=== PATIENT | male | born 1930 | race Caucasian/White ===

== ENCOUNTER 2016-12-28 18:41 | Observation (INO) | payer OTHER, BC ==
[2016-12-28 19:23] LABS: BASOPHIL 0.7 % (0-2.0); EOSINOPHIL 0.2 % (0-4.5); MCH 28.3 pg (25.7-33.7); MCHC 33.4 g/dl (32.0-35.9); MEAN CELL VOLUME 84.6 fl (80-96); MEAN PLT VOLUME 8.8 fl (7.5-11.1); NEUTROPHILS 68.8 % (42.8-82.8); PLATELET COUNT 171 K/MM3 (134-434); RDW 14.2 % (11.9-15.9); WHITE BLOOD COUNT 7.6 K/mm3 (4.0-10.0)
[2016-12-28 19:34] LABS: INR 1.08 (0.82-1.09); PROTHROMBIN TIME (PATIENT) 11.9 SEC (9.98-11.88)
[2016-12-28 19:46] LABS: ALBUMIN 3.8 g/dl (3.4-5.0); ANION GAP 10 (8-16); BILIRUBIN,TOTAL 0.6 mg/dL (0.2-1.0); CALCIUM 8.9 mg/dL (8.5-10.1); CO2 26 mmol/L (21-32); CREATININE 0.9 mg/dL (0.7-1.3); GLUCOSE,RANDOM 127 mg/dL (74-106); SGOT/AST 16 U/L (15-37); SGPT/ALT 20 U/L (12-78); TOT PROT 6.7 g/dl (6.4-8.2)
[2016-12-28 19:49] LABS: ALK PHOS 66 U/L (45-117); TROPONIN I 0.03 ng/ml (0.00-0.05)
--- NOTE | 2016-12-28 19:57 | PDOC ---
History of Present Illness - General Chief Complaint: Chest Pain Stated Complaint: CHEST PAIN Time Seen by Provider: 12/28/16 19:23 History Source: Patient, Family Exam Limitations: No Limitations - History of Present Illness Initial Comments: 12/28/16 19:42 Patient is an 89 y.o male with history reflux, shingles, diet-controlled DM, PHN , c/o decreased appetite and feeling weak. Per states the patient has not been eating well x 2-3 days, but today not drinking liquids at all. This evening had tightness in the chest, states it felt like a burning. His gave him tea, then he vomited, then felt better. PMD: Dr. Covarrubias PMHX: as above PSOCHX: neg cig, neg etoh, neg durg. Famhx: noncontributory ALL: NKDA GENERAL/CONSTITUTIONAL: [No fever or chills. No weakness. No weight change.] HEAD, EYES, EARS, NOSE AND THROAT: [No change in vision. No ear pain or discharge. No sore throat.] CARDIOVASCULAR: [No chest pain or shortness of breath.] RESPIRATORY: [No cough, wheezing, or hemoptysis.] GASTROINTESTINAL: [No nausea, vomiting, diarrhea or constipation. No rectal bleeding.] GENITOURINARY: [No dysuria, frequency, or change in urination.] MUSCULOSKELETAL: [No joint or muscle swelling or pain. No neck or back pain.] SKIN AND BREASTS: [No rash or easy bruising.] NEUROLOGIC: [No headache, vertigo, loss of consciousness, or loss of sensation.] PSYCHIATRIC: [No depression or anxiety.] ENDOCRINE: [No increased thirst. No abnormal weight change.] HEMATOLOGIC/LYMPHATIC: [No anemia, easy bleeding, or history of blood clots.] ALLERGIC/IMMUNOLOGIC: [No hives or skin allergy. No latex allergy.] GENERAL: [The patient is awake, alert, and fully oriented, in no acute distress. ] HEAD: [Normal with no signs of trauma.] EYES: [Pupils equal, round and reactive to light, extraocular movements intact, sclera anicteric, conjunctiva clear.] ENT: [Ears normal, nares patent, oropharynx clear without exudates. Moist mucous membranes.] NECK: [Normal range of motion, supple without lymphadenopathy, JVD, or masses.] LUNGS: [Breath sounds equal, clear to auscultation bilaterally. No wheezes, and no crackles.] HEART: [Regular rate and rhythm, normal S1 and S2 without murmur, rub, (+) tenderness to distal sternum.] ABDOMEN: [Soft, nontender, normoactive bowel sounds. No guarding, no rebound. No masses.] EXTREMITIES: [Normal range of motion, no edema. No clubbing or cyanosis. No cords, erythema, or tenderness.] NEUROLOGICAL: [Cranial nerves II through XII grossly intact. Normal speech, normal gait.] PSYCH: [Normal mood, normal affect.] SKIN: [Warm, Dry, normal turgor, (+) hyperpimented rashes along right upper back along dermatome] Past History - Past Medical History Allergies/Adverse Reactions: Allergies Allergy/AdvReac Type Severity Reaction Status Date / Time Penicillins Allergy Intermediate Rash Verified 12/28/16 18:46 Home Medications: Ambulatory Orders Aspirin [ASA -] 81 mg PO DAILY 09/27/16 Simvastatin [Zocor -] 20 mg PO HS 09/27/16 Diabetes: Yes (no meds) Hypercholesterolemia: Yes - Psycho/Social/Smoking Cessation Hx Suicidal Ideation: No Smoking History: Never smoked Hx Alcohol Use: No Drug/Substance Use Hx: No *Physical Exam - Vital Signs Last Vital Signs Temp Pulse Resp BP Pulse Ox 97.1 F L 93 H 18 142/75 98 12/28/16 18:43 12/28/16 18:43 12/28/16 18:43 12/28/16 18:43 12/28/16 18:43 ED Treatment Course - LABORATORY CBC & Chemistry Diagram: 12/29/16 06:45 12/29/16 06:45 - ADDITIONAL ORDERS Additional order review: Laboratory Results 12/28/16 18:11 INR 1.08 12/28/16 18:11 RBC 5.55 MCV 84.6 MCHC 33.4 RDW 14.2 MPV 8.8 Neutrophils % 68.8 D Lymphocytes % 24.3 D Monocytes % 6.0 Eosinophils % 0.2 D Basophils % 0.7 D Medical Decision Making - Medical Decision Making 12/28/16 19:57 Patient is a 86 year old male with h/o male with history reflux, shingles, diet- controlled DM, PHN, c/o decreased appetite and feeling weak. Per states the patient has not been eating well x 2-3 days, but today not drinking liquids at all. R/o VA, metabolic will get labs, ekg, cxr, ivf, Zofran 4 mg IV for nausea. labs with no acute findings except for ketone in the UA continue to hydrate cxr neg will admit to scattered obs for repeat trop and continued IVF hydration 12/28/16 23:08 EKG SR rate 85, NAD, (-) ST-T wave changes. d/w with Dr. Dawson will admit to obs *DC/Admit/Observation/Transfer Diagnosis at time of Disposition: Weakness generalized, Dehydration Chest pain Qualifiers: Chest pain type: unspecified Qualified Code(s): R07.9 - Chest pain, unspecified Nausea and vomiting Qualifiers: Vomiting type: unspecified Vomiting Intractability: unspecified Qualified Code( s): R11.2 - Nausea with vomiting, unspecified - Discharge Dispostion Condition at time of disposition: Stable Admit: Yes
[2016-12-28] MEDS ORDERED: SODIUM CHLORIDE 0.9% 1000 ML INFUS.BAG IV ONE (20:37)
[2016-12-28] MEDS ORDERED: ONDANSETRON 4 MG/2 ML VIAL ONE (21:41)
[2016-12-28] MEDS ORDERED: ONDANSETRON 4 MG/2 ML VIAL IVPUSH ONE (21:43)
[2016-12-28 22:01] LABS: AMYLASE 82 U/L (25-115)
[2016-12-28 22:38] LABS: URINE APPEARANCE CLEAR; URINE BILIRUBIN NEGATIVE (NEGATIVE); URINE BLOOD NEGATIVE (NEGATIVE); URINE COLOR YELLOW; URINE GLUCOSE (UA) NEGATIVE (NEGATIVE); URINE KETONE 1+ (NEGATIVE); URINE LEUK ESTERASE NEGATIVE (NEGATIVE); URINE NITRITE NEGATIVE (NEGATIVE); URINE PROTEIN NEGATIVE (NEGATIVE); URINE UROBILINOGEN 2.0 E.U/dl E.U./dl (0.2-1.0)
--- NOTE | 2016-12-28 23:39 | HP ---
CHIEF COMPLAINT: Chest Pain, Decreased Appetite, Generalized Weakness PCP: Dr. Covarrubias HISTORY OF PRESENT ILLNESS: This is a 86 y/o male with a past medical history of Diet Controlled DM, HLD, GERD, Post Herpetic Neuralgia. Who presents to the emergency department with his spouse with decreased appetite, generalized weakness, burning chest pain x 2 -3 days. Patient reports that his appetite has decreased since getting older, he reports drinking lots of fluids-water and juice. Patient reports increased fatigue. Patient reports feeling a burning pain across his chest and epigastrium , without SOB. Patient denies fever, chills, cough, dizziness, jaw pain, diaphoresis, N/V/D, constipation, dysuria ER course was notable for: (1) Cardiac Enzymes neg x1 (2) Chest Xray image- no infiltrate no effusion (3) EKG- NSR, Septal Infarct, age undetermined Recent Travel: None PAST MEDICAL HISTORY: See HPI PAST SURGICAL HISTORY: R- Shoulder for Dislocation R knee Replacement Social History: Smoking: Never Alcohol: None Drugs: None Lives with spouse, retired Family History: Father: Cardiac, HTN Allergies Penicillins Allergy (Intermediate, Verified 12/28/16 18:46) Rash HOME MEDICATIONS: Home Medications Medication Instructions Recorded Aspirin [ASA -] 81 mg PO DAILY 09/27/16 Simvastatin [Zocor -] 20 mg PO HS 09/27/16 REVIEW OF SYSTEMS CONSTITUTIONAL: Absent: fever, chills, diaphoresis, generalized weakness, malaise, loss of appetite, weight change HEENT: Absent: rhinorrhea, nasal congestion, throat pain, throat swelling, difficulty swallowing, mouth swelling, ear pain, eye pain, visual changes CARDIOVASCULAR: chest pain Absent: syncope, palpitations, irregular heart rate, lightheadedness, peripheral edema RESPIRATORY: Absent: cough, shortness of breath, dyspnea with exertion, orthopnea, wheezing, stridor, hemoptysis GASTROINTESTINAL: abdominal pain Absent: abdominal distension, nausea, vomiting, diarrhea, constipation, melena , hematochezia GENITOURINARY: Absent: dysuria, frequency, urgency, hesitancy, hematuria, flank pain, genital pain MUSCULOSKELETAL: Absent: myalgia, arthralgia, joint swelling, back pain, neck pain SKIN: Absent: rash, itching, pallor HEMATOLOGIC/IMMUNOLOGIC: Absent: easy bleeding, easy bruising, lymphadenopathy, frequent infections ENDOCRINE: Absent: unexplained weight gain, unexplained weight loss, heat intolerance, cold intolerance NEUROLOGIC: Absent: headache, focal weakness or paresthesias, dizziness, unsteady gait, seizure, mental status changes, bladder or bowel incontinence PSYCHIATRIC: Absent: anxiety, depression, suicidal or homicidal ideation, hallucinations. PHYSICAL EXAMINATION Vital Signs - 24 hr 12/28/16 18:43 Temperature 97.1 F L Pulse Rate 93 H Respiratory 18 Rate Blood Pressure 142/75 O2 Sat by Pulse 98 Oximetry (%) GENERAL: Awake, alert, and fully oriented, in no acute distress. HEAD: Normal with no signs of trauma. EYES: Pupils equal, round and reactive to light, extraocular movements intact, sclera anicteric, conjunctiva clear. No lid lag. EARS, NOSE, THROAT: Ears normal, nares patent, oropharynx clear without exudates. Moist mucous membranes. NECK: Normal range of motion, supple without lymphadenopathy, JVD, or masses. LUNGS: Breath sounds equal, clear to auscultation bilaterally. No wheezes, and no crackles. No accessory muscle use. HEART: Regular rate and rhythm, normal S1 and S2 without murmur, rub or gallop. Non-reproducible CP ABDOMEN: Soft, tender to epigastrium, not distended, normoactive bowel sounds, no guarding, no rebound, no masses. No hepatomegaly or splenomegaly. MUSCULOSKELETAL: Normal range of motion at all joints. No bony deformities or tenderness. No CVA tenderness. UPPER EXTREMITIES: 2+ pulses, warm, well-perfused. No cyanosis. No clubbing. Cap refill <2 seconds. No peripheral edema. LOWER EXTREMITIES: 2+ pulses, warm, well-perfused. No calf tenderness. No peripheral edema. NEUROLOGICAL: Cranial nerves II-XII intact. Normal speech. Normal gait. PSYCHIATRIC: Cooperative. Good eye contact. Appropriate mood and affect. SKIN: Warm, dry, normal turgor, no rashes or lesions noted. Laboratory Results - last 24 hr 12/28/16 12/28/16 12/28/16 18:11 18:11 18:11 WBC 7.6 D RBC 5.55 Hgb 15.7 Hct 46.9 MCV 84.6 MCHC 33.4 RDW 14.2 Plt Count 171 MPV 8.8 Neutrophils % 68.8 D Lymphocytes % 24.3 D Monocytes % 6.0 Eosinophils % 0.2 D Basophils % 0.7 D INR 1.08 Sodium 138 Potassium 3.8 Chloride 102 Carbon Dioxide 26 Anion Gap 10 BUN 12 D Creatinine 0.9 Creat Clearance w eGFR > 60 Random Glucose 127 H Calcium 8.9 Total Bilirubin 0.6 D AST 16 D ALT 20 Alkaline Phosphatase 66 Creatine Kinase 69 Troponin I 0.03 D Total Protein 6.7 Albumin 3.8 Total Amylase Lipase Urine Color Urine Appearance Urine pH Ur Specific Randolph Urine Protein Urine Glucose (UA) Urine Ketones Urine Blood Urine Nitrite Urine Bilirubin Urine Urobilinogen Ur Leukocyte Esterase 12/28/16 12/28/16 19:15 22:05 WBC RBC Hgb Hct MCV MCHC RDW Plt Count MPV Neutrophils % Lymphocytes % Monocytes % Eosinophils % Basophils % INR Sodium Potassium Chloride Carbon Dioxide Anion Gap BUN Creatinine Creat Clearance w eGFR Random Glucose Calcium Total Bilirubin AST ALT Alkaline Phosphatase Creatine Kinase Troponin I Total Protein Albumin Total Amylase 82 Lipase 157 Urine Color Yellow Urine Appearance Clear Urine pH 6.0 Ur Specific Randolph 1.021 Urine Protein Negative Urine Glucose (UA) Negative Urine Ketones 1+ H Urine Blood Negative Urine Nitrite Negative Urine Bilirubin Negative Urine Urobilinogen 2.0 e.u/dl Ur Leukocyte Esterase Negative ASSESSMENT/PLAN: This is a 86 y/o male with a PMHx of: Diet Controlled DM, HLD, GERD, PHN. Presents to the ED with Burning Chest Pain, decreased appetite, malaise. Placed in Tele Observation for Chest Pain r/o ACS, Acid Reflux, Mild Dehydration for further evaluation of their emergent condition. Plan: 1. Chest Pain r/o ACS vs Acid Reflux - Tele Monitoring - HEART Score 4 - CARLA 2 - Serial Enzymes - Echo in am - EKG reviewed - Chest Xray-reviewed - Ordered Asa 324mg x1 - Continue Asa - Lipid Panel, Hgb A1C in am - Monitor BMP, Mg, Phos 2. Dehydration - +1 Ketones - NS bolus given in ED - Continue gentle IVF - Monitor lytes - Monitor vitals 3. GERD - PPI 4.Diabetes Mellitus - BGMs - ISS - HgbA1C in am 5. HLD - Continue Zocor - Lipid Panel in am 6. PHN - non active - patient reports completing medication regimen 7. FEN - NS@42ml/hr - Replete lytes prn - 1800 ADA, Low Cholesterol Diet 8. DVT/PPI Prophylaxis - OOB - SCDs - Consider AC if LOS > 48 hrs Code Status: Full Code Problem List - Problem (1) Chest pain Code(s): R07.9 - CHEST PAIN, UNSPECIFIED Qualifiers: Chest pain type: unspecified Qualified Code(s): R07.9 - Chest pain, unspecified (2) Dehydration Code(s): E86.0 - DEHYDRATION (3) Nausea and vomiting Code(s): R11.2 - NAUSEA WITH VOMITING, UNSPECIFIED Qualifiers: Vomiting type: unspecified Vomiting Intractability: unspecified Qualified Code(s): R11.2 - Nausea with vomiting, unspecified (4) Weakness generalized Code(s): R53.1 - WEAKNESS (5) Post herpetic neuralgia Code(s): B02.29 - OTHER POSTHERPETIC NERVOUS SYSTEM INVOLVEMENT (6) Shingles Code(s): B02.9 - ZOSTER WITHOUT COMPLICATIONS Qualifiers: Herpes zoster complications: without complications Qualified Code(s): B02.9 - Zoster without complications (7) Diet-controlled diabetes mellitus Code(s): E11.9 - TYPE 2 DIABETES MELLITUS WITHOUT COMPLICATIONS (8) HLD (hyperlipidemia) Code(s): E78.5 - HYPERLIPIDEMIA, UNSPECIFIED (9) GERD (gastroesophageal reflux disease) Code(s): K21.9 - GASTRO-ESOPHAGEAL REFLUX DISEASE WITHOUT ESOPHAGITIS (10) DVT prophylaxis Code(s): DLC0967 - Visit type - Emergency Visit Emergency Visit: Yes ED Registration Date: 12/28/16 Care time: The patient presented to the Emergency Department on the above date and was hospitalized for further evaluation of their emergent condition. - New Patient This patient is new to me today: Yes Date on this admission: 12/28/16 - Critical Care Critical Care patient: No
[2016-12-28] MEDS ORDERED: ASPIRIN 81 MG CHEWABLE TABLETS PO ONE (23:56)
[2016-12-28] MEDS ORDERED: ONDANSETRON 4 MG/2 ML VIAL IVPUSH PRN (23:57)
[2016-12-29] MEDS ORDERED: FAMOTIDINE 20 MG/50 ML IVPB 50 ML IVPB ONE ×2 (00:02→00:32)
[2016-12-29] MEDS ORDERED: ASPIRIN 325 MG ENTERIC COATED TABLET (FP) ONE (00:32)
[2016-12-29 01:16] LABS: TROPONIN I 0.03 ng/ml (0.00-0.05)
[2016-12-29 07:01] LABS: EOSINOPHIL 0.6 % (0-4.5); MCH 28.6 pg (25.7-33.7); MEAN CELL VOLUME 84.1 fl (80-96); MEAN PLT VOLUME 8.8 fl (7.5-11.1); NEUTROPHILS 61.6 % (42.8-82.8); PLATELET COUNT 139 K/MM3 (134-434)
[2016-12-29 07:25] LABS: CALCIUM 8.3 mg/dL (8.5-10.1); CREATININE 0.8 mg/dL (0.7-1.3); MAGNESIUM 1.8 mg/dL (1.8-2.4); PHOSPHOROUS 2.7 mg/dL (2.5-4.9)
[2016-12-29 07:30] LABS: TROPONIN I 0.03 ng/ml (0.00-0.05)
[2016-12-29 07:44] VITALS: TEMP 98.7
[2016-12-29] MEDS ORDERED: ASPIRIN 81 MG CHEWABLE TABLETS PO SCH (10:00)
--- NOTE | 2016-12-29 10:28 | PN ---
Physical Exam: SUBJECTIVE: Patient seen and examined. Ate breakfast. No recurrent chest pain. OBJECTIVE: Trop neg x 3. Echo done, result is pending. Vital Signs Period Temp Pulse Resp BP Sys/Shanks Pulse Ox Last 24 Hr 97.9 F-98.7 F 72-78 16-19 130-145/68-78 95-97 GENERAL: The patient is awake, alert, and fully oriented, in no acute distress. EYES: PERRL, extraocular movements intact, sclera anicteric, conjunctiva clear. No ptosis. ENT: Ears normal, nares patent, oropharynx clear without exudates, moist mucous membranes. NECK: Trachea midline, full range of motion, supple. LUNGS: Breath sounds equal, clear to auscultation bilaterally, no wheezes, no crackles, no accessory muscle use. HEART: Regular rate and rhythm, S1, S2 without murmur, rub or gallop. ABDOMEN: Soft, nontender even to deep palpation including epigastrium and RUQ, nondistended, normoactive bowel sounds, no guarding, no rebound, no hepatosplenomegaly, no masses. EXTREMITIES: 2+ pulses, warm, well-perfused, no edema. NEUROLOGICAL: Cranial nerves II through XII grossly intact. Normal speech, gait not observed. PSYCH: Normal mood, normal affect. SKIN: Warm, dry, normal turgor, no rashes or lesions noted Laboratory Results - last 24 hr 12/29/16 12/29/16 12/29/16 00:40 06:45 06:45 WBC 7.0 RBC 4.86 Hgb 13.9 D Hct 40.9 MCV 84.1 MCHC 34.0 RDW 14.0 Plt Count 139 MPV 8.8 Neutrophils % 61.6 Lymphocytes % 28.1 Monocytes % 8.7 Eosinophils % 0.6 D Basophils % 1.0 Sodium 140 Potassium 4.1 Chloride 107 Carbon Dioxide 25 Anion Gap 8 BUN 12 Creatinine 0.8 Random Glucose 121 H Hemoglobin A1c % Calcium 8.3 L Phosphorus 2.7 Magnesium 1.8 Creatine Kinase 69 96 Troponin I 0.03 0.03 Triglycerides 58 Cholesterol 127 Total LDL Cholesterol 59 HDL Cholesterol 70 H 12/29/16 06:45 WBC RBC Hgb Hct MCV MCHC RDW Plt Count MPV Neutrophils % Lymphocytes % Monocytes % Eosinophils % Basophils % Sodium Potassium Chloride Carbon Dioxide Anion Gap BUN Creatinine Random Glucose Hemoglobin A1c % 6.5 H Calcium Phosphorus Magnesium Creatine Kinase Troponin I Triglycerides Cholesterol Total LDL Cholesterol HDL Cholesterol Active Medications Generic Name Dose Route Start Last Admin Trade Name Freq PRN Reason Stop Dose Admin Aspirin 81 mg 12/29/16 10:00 Asa - PO DAILY FLAKO Atorvastatin Calcium 20 mg 12/29/16 22:00 Lipitor - PO HS FLAKO Sodium Chloride 1,000 mls @ 42 mls/hr 12/29/16 00:00 12/29/16 00:41 Normal Saline - IV 42 mls/hr ASDIR FLAKO Administration Ondansetron HCl 4 mg 12/28/16 23:57 Zofran Injection IVPUSH Q6H PRN NAUSEA AND/OR VOMITING ASSESSMENT/PLAN: 86 y/o male with diet-controlled DM, HLD, GERD, and post- herpetic neuralgia placed in observation for dehydration and rule out MT. Plan: 1. Chest Pain r/o ACS vs Acid Reflux - Tele Monitoring - Trop neg x 3 - Follow up echocardiogram - Continue Asa - Lipid panel unremarkable 2. Dehydration - +1 Ketones - NS bolus given in ED - Continue gentle IVF - Monitor lytes 3. GERD - Pepcid 20mg IVPB bid 4.Diabetes Mellitus - BGMs - ISS - HgbA1C is 6.5; will advise followup with PCP, continuation of diet 5. HLD - Continue Zocor 6. PHN - No pain or other active issues 7. FEN - NS@84 ml/hr - Replete lytes prn - 1800 ADA, Low Cholesterol Diet 8. DVT/PPI Prophylaxis - OOB Code Status: Full Code Dispo: Anticipate discharge after echo resulted today. Visit type - Emergency Visit Emergency Visit: Yes ED Registration Date: 12/28/16 Care time: The patient presented to the Emergency Department on the above date and was hospitalized for further evaluation of their emergent condition. - New Patient This patient is new to me today: Yes Date on this admission: 12/29/16 - Critical Care Critical Care patient: No
[2016-12-29] MEDS ORDERED: SODIUM CHLORIDE 1,000 ML IV SCH ×2 (11:30)
[2016-12-29 14:15] VITALS: BMI 25.8
[2016-12-29 14:19] VITALS: BP 133/79; PULSE 68
--- NOTE | 2016-12-29 16:20 | EKG ---
Test Reason : Blood Pressure : / mmHG Vent. Rate : 085 BPM Atrial Rate : 085 BPM P-R Int : 186 ms QRS Dur : 080 ms QT Int : 376 ms P-R-T Axes : 059 017 088 degrees QTc Int : 447 ms NORMAL SINUS RHYTHM SEPTAL INFARCT , AGE UNDETERMINED ABNORMAL ECG WHEN COMPARED WITH ECG OF 14-OCT-2016 00:09, SEPTAL INFARCT IS NOW PRESENT Confirmed by NANO DUDLEY MD ([id number]) on 12/29/2016 4:20:05 PM Referred By: Confirmed By:NANO DUDLEY MD
--- NOTE | 2016-12-29 17:51 | DS ---
Physical Exam: SUBJECTIVE: Patient seen and examined. Feeling better, no complaints. OBJECTIVE: Vital Signs Period Temp Pulse Resp BP Sys/Shanks Pulse Ox Last 24 Hr 97.9 F-98.7 F 67-78 16-19 130-145/68-79 95-97 PHYSICAL EXAM GENERAL: The patient is awake, alert, and fully oriented, in no acute distress. HEAD: Normal with no signs of trauma. EYES: PERRL, extraocular movements intact, sclera anicteric, conjunctiva clear. ENT: Ears normal, nares patent, oropharynx clear without exudates, moist mucous membranes. NECK: Trachea midline, full range of motion, supple. LUNGS: Breath sounds equal, clear to auscultation bilaterally, no wheezes, no crackles, no accessory muscle use. HEART: Regular rate and rhythm, S1, S2 without murmur, rub or gallop. ABDOMEN: Soft, nontender, nondistended, normoactive bowel sounds, no guarding, no rebound, no hepatosplenomegaly, no masses. EXTREMITIES: 2+ pulses, warm, well-perfused, no edema. NEUROLOGICAL: Cranial nerves II through XII grossly intact. Normal speech, gait not observed. PSYCH: Normal mood, normal affect. SKIN: Warm, dry, normal turgor, no rashes or lesions noted. LABS Laboratory Results - last 24 hr 12/29/16 12/29/16 12/29/16 00:40 06:45 06:45 WBC 7.0 RBC 4.86 Hgb 13.9 D Hct 40.9 MCV 84.1 MCHC 34.0 RDW 14.0 Plt Count 139 MPV 8.8 Neutrophils % 61.6 Lymphocytes % 28.1 Monocytes % 8.7 Eosinophils % 0.6 D Basophils % 1.0 Sodium 140 Potassium 4.1 Chloride 107 Carbon Dioxide 25 Anion Gap 8 BUN 12 Creatinine 0.8 Random Glucose 121 H Hemoglobin A1c % Calcium 8.3 L Phosphorus 2.7 Magnesium 1.8 Creatine Kinase 69 96 Troponin I 0.03 0.03 Triglycerides 58 Cholesterol 127 Total LDL Cholesterol 59 HDL Cholesterol 70 H 12/29/16 06:45 WBC RBC Hgb Hct MCV MCHC RDW Plt Count MPV Neutrophils % Lymphocytes % Monocytes % Eosinophils % Basophils % Sodium Potassium Chloride Carbon Dioxide Anion Gap BUN Creatinine Random Glucose Hemoglobin A1c % 6.5 H Calcium Phosphorus Magnesium Creatine Kinase Troponin I Triglycerides Cholesterol Total LDL Cholesterol HDL Cholesterol HOSPITAL COURSE: This is a 86 year old male with a history of diet-controlled DM , HLD, GERD, and post-herpetic neuralgia who presented to the ED last night complaining of decreased appetite/no fluid intake, generalized weakness, burning chest pain x 2-3 days. He was placed in observation for rule out SC and dehydration, as UA showed 1+ ketones. Hospital course was notable for: (1) EKG: NSR, no ST or T wave changes (2) Troponin negative x 3 (3) CXR: No acute process (4) Lipid profile unremarkable (5) HgbA1C 6.5% (6) Echocardiogram: normal LVEF, normal structure/function The patient was given Pepcid, Zofran, and IV fluids and greatly improved. This morning, he is asymptomatic and ate a full breakfast without difficulty. He will be discharged with Pepcid and PCP followup. Return precautions were reviewed with the patient. Date of Admission:12/28/16 Date of Discharge: 12/29/16 Minutes to complete discharge: 35 Discharge Summary Reason For Visit: WEAKNESS,NAUSEA AND VOMITING,CHEST PIAN,DEHYDRATIO Condition: Stable - Instructions Diet, Activity, Other Instructions: You were seen for weakness, dehydration, poor appetite, and chest pain. Your diagnostics including abdominal labs, cardiac labs, chest xray, EKG, and echocardiogram did not reveal any cause for your symptoms. Rest and stay well-hydrated. Take Pepcid as prescribed for relief of burning stomach/chest pain, as this seemed to help you while in the hospital. Follow up with your primary care doctor within one week. Return here for worsening chest pain, abdominal pain, vomiting, or any other concerning symptoms. Referrals: Nicholas Greenberg I [Primary Care Provider] - 1 Week Disposition: HOME - Home Medications Comprehensive Discharge Medication List: Ambulatory Orders Aspirin [ASA -] 81 mg PO DAILY 09/27/16 Simvastatin [Zocor -] 20 mg PO HS 09/27/16 Famotidine [Pepcid -] 20 mg PO DAILY #30 tablet 12/29/16 This patient is new to me today: No Emergency Visit: Yes ED Registration Date: 12/28/16 Care time: The patient presented to the Emergency Department on the above date and was hospitalized for further evaluation of their emergent condition. Critical Care patient: No - Discharge Referral Referred to [facility] No
[2016-12-29] MEDS ORDERED: FAMOTIDINE 20 MG/50 ML IVPB 50 ML IVPB SCH (22:00)
[2016-12-29] MEDS ORDERED: ATORVASTATIN CA 20 MG TABLET (FP) PO SCH (22:00)
== END 2016-12-29 14:10 | disposition home or self-care (01) ==
LOC: JER 18:41 → OBSVTOIN 23:11 → UNDOADMOB 23:11 → JERBED 23:11 → INTOOBSV 23:11 → UNDOADMOB 23:27 → JERBED 23:27
PROVIDERS: ADMIT Internal Medicine; ATTEND Nurse Practitioner Family
DX: E86.0 Dehydration (principal); R11.2 Nausea with vomiting, unspecified; E11.9 Type 2 diabetes mellitus without complications; K21.9 Gastro-esophageal reflux disease without esophagitis; E78.5 Hyperlipidemia, unspecified; B02.29 Other postherpetic nervous system involvement; R07.9 Chest pain, unspecified
CPT/HCPCS: 36415; 71010-TC; 80048; 80053; 80061; 81003; 82150; 82550; 83036; 83690; 83721; 83735; 84100; 84484; 85025; 85610; 93005; 93010; 93306-TC; 99285-25; G0378

== ENCOUNTER 2018-04-07 18:19 | Emergency (ER) | payer OTHER, BC ==
[2018-04-07 18:58] VITALS: BP 143/74; PULSE 96; TEMP 97.7; BMI 23.6
[2018-04-07] MEDS ORDERED: ONDANSETRON 4 MG/2 ML VIAL IVPUSH ONE (20:24)
[2018-04-07] MEDS ORDERED: FAMOTIDINE 20 MG/50 ML IVPB 20 MG/50 ML MG IVPB ONE ×2 (20:24→20:50)
[2018-04-07] MEDS ORDERED: SODIUM CHLORIDE 1,000 ML IV STA (20:24)
--- NOTE | 2018-04-07 20:24 | PDOC ---
History of Present Illness - General History Source: Patient, Spouse Exam Limitations: No Limitations - History of Present Illness Initial Comments: 04/07/18 21:04 The patient is a 87 year old male with past medical history of reflux, shingles , diet-controlled DM, hypercholesterolemia and PHN presents to the emergency department with nausea and vomiting since last night. As per the , last night they went out to eat, where he had white rice, chicken stew, sweet plantains and a piece of cake. She states immediately as they got home, the patient started having episodes of dark colored vomit, no relief with seltzer water or chamomile tea. The patient is reported to have episode of hiccup followed by the vomiting. As per the , who reports similar incident in the past which were resolved by tea. She reports calling Dr. Greenberg earlier today, who recommend they come in for an evaluation for dehydration. The patients last bowel movement was earlier prior to the ED visit. Denies hematemesis. Denies fever, chills, headache. Denies chest pain, sob or cough. Denies diarrhea or constipation. Denies dysuria, hematuria, frequency or urgency to urinate. Allergies: Penicillins Social history: None reported Surgical history: Right Knee Surgery PCP: Dr. Nicholas Greenberg <Christy Montana - Last Filed: 04/07/18 21:04> <Lynn Trevizo - Last Filed: 04/08/18 16:48> - General Chief Complaint: Nausea/Vomiting Stated Complaint: NAUSEA/VOMITING Time Seen by Provider: 04/07/18 20:11 Past History <Christy Montana - Last Filed: 04/07/18 21:04> - Past Medical History COPD: No Diabetes: Yes (no meds) Hypercholesterolemia: Yes - Suicide/Smoking/Psychosocial Hx Smoking History: Never smoked Hx Alcohol Use: No Drug/Substance Use Hx: No Substance Use Type: None <Lynn Trevizo - Last Filed: 04/08/18 16:48> - Past Medical History Allergies/Adverse Reactions: Allergies Allergy/AdvReac Type Severity Reaction Status Date / Time Penicillins Allergy Intermediate Rash Verified 04/07/18 18:53 Home Medications: Ambulatory Orders Aspirin [ASA -] 81 mg PO DAILY 09/27/16 Simvastatin [Zocor -] 20 mg PO HS 11/19/16 Famotidine [Pepcid -] 20 mg PO DAILY #30 tablet 12/29/16 Review of Systems - Review of Systems Able to Perform ROS?: Yes Comments:: 04/07/18 21:04 GENERAL/CONSTITUTIONAL: No fever or chills. No weakness. HEAD, EYES, EARS, NOSE AND THROAT: No change in vision. No ear pain or discharge. No sore throat. CARDIOVASCULAR: No chest pain or shortness of breath. RESPIRATORY: No cough, wheezing, or hemoptysis. GASTROINTESTINAL: (+) nausea and vomiting No diarrhea or constipation. GENITOURINARY: No dysuria, frequency, or change in urination. MUSCULOSKELETAL: No joint or muscle swelling or pain. No neck or back pain. SKIN: No rash NEUROLOGIC: No headache, vertigo, loss of consciousness, or change in strength/ sensation. ENDOCRINE: No increased thirst. No abnormal weight change. HEMATOLOGIC/LYMPHATIC: No anemia, easy bleeding, or history of blood clots. ALLERGIC/IMMUNOLOGIC: No hives or skin allergy. <Christy Montana - Last Filed: 04/07/18 21:04> *Physical Exam - Vital Signs Last Vital Signs Temp Pulse Resp BP Pulse Ox 97.7 F 96 H 20 143/74 96 04/07/18 18:54 04/07/18 18:54 04/07/18 18:54 04/07/18 18:54 04/07/18 18:54 - Physical Exam Comments: 04/07/18 21:05 GENERAL: Awake, alert, and fully oriented, in no acute distress HEAD: No signs of trauma EYES: PERRLA, EOMI, sclera anicteric, conjunctiva clear ENT: (+) dry mucous membranes. Auricles normal inspection, hearing grossly normal, nares patent, oropharynx clear without exudates. NECK: Normal ROM, supple, no lymphadenopathy, JVD, or masses LUNGS: Breath sounds equal, clear to auscultation bilaterally. No wheezes, and no crackles HEART: Regular rate and rhythm, normal S1 and S2, no murmurs, rubs or gallops ABDOMEN: Soft, nontender, normoactive bowel sounds. No guarding, no rebound. No masses EXTREMITIES: Normal range of motion, no edema. No clubbing or cyanosis. No cords, erythema, or tenderness NEUROLOGICAL: Cranial nerves II through XII grossly intact. Normal speech, normal gait SKIN: Warm, Dry, normal turgor, no rashes or lesions noted. <Christy Montana - Last Filed: 04/07/18 21:04> - Vital Signs Last Vital Signs Temp Pulse Resp BP Pulse Ox 97.7 F 96 H 20 143/74 96 04/07/18 18:54 04/07/18 18:54 04/07/18 18:54 04/07/18 18:54 04/07/18 18:54 <Lynn Trevizo - Last Filed: 04/08/18 16:48> Heart Score/ECG Review - ECG Impressions Comment:: EKG 22:48- NSR [address]/T changes <Lynn Trevizo - Last Filed: 04/08/18 16:48> ED Treatment Course - LABORATORY CBC & Chemistry Diagram: 04/07/18 20:41 04/07/18 20:41 - ADDITIONAL ORDERS Additional order review: 04/07/18 20:41 RBC 5.90 H D MCV 85.2 MCHC 32.9 RDW 14.1 MPV 8.4 Neutrophils % 89.0 H D Lymphocytes % 6.0 L D Monocytes % 4.0 Eosinophils % 0.0 D Basophils % 1.0 <Christy Montana - Last Filed: 04/07/18 21:04> - LABORATORY CBC & Chemistry Diagram: 04/07/18 20:41 04/07/18 20:41 <Lynn Trevizo - Last Filed: 04/08/18 16:48> Medical Decision Making - Medical Decision Making 04/08/18 01:02 Pt reports improvement in symptoms. He was able to tolerate crackers PO. No signs of acute abdomen. I counseled him to return if the symptoms persist beyond 48 hours, or if he has pain, fever, or any other concerning symptoms. <Lynn Trevizo - Last Filed: 04/08/18 16:48> *DC/Admit/Observation/Transfer - Attestations Scribe Attestion: 04/07/18 21:05 Documentation prepared by Christy Montana, acting as medical art therapist for Lynn Trevizo MD. <Christy Montana - Last Filed: 04/07/18 21:04> - Discharge Dispostion Decision to Admit order: No <Jeniffer Trevizozabeth - Last Filed: 04/08/18 16:48> Diagnosis at time of Disposition: Nausea and vomiting Qualifiers: Vomiting type: unspecified Vomiting Intractability: non-intractable Qualified Code(s): R11.2 - Nausea with vomiting, unspecified - Discharge Dispostion Disposition: HOME Condition at time of disposition: Improved - Referrals Referrals: Nicholas Greenberg I [Primary Care Provider] - - Patient Instructions Printed Discharge Instructions: DI for Vomiting -- Adult - Post Discharge Activity
[2018-04-07] MEDS ORDERED: ONDANSETRON 4 MG/2 ML VIAL ONE (20:50)
[2018-04-07 20:58] LABS: HEMATOCRIT 50.3 % (35.4-49); HEMOGLOBIN 16.5 GM/dL (11.7-16.9); MCHC 32.9 g/dl (32.0-35.9); MEAN CELL VOLUME 85.2 fl (80-96); MEAN PLT VOLUME 8.4 fl (7.5-11.1); PLATELET COUNT 217 K/MM3 (134-434); RDW 14.1 % (11.9-15.9)
[2018-04-07 21:20] LABS: ALBUMIN 3.8 g/dl (3.4-5.0); ALK PHOS 67 U/L (45-117); ANION GAP 7 (8-16); BILIRUBIN,TOTAL 0.6 mg/dL (0.2-1.0); BLOOD UREA NITROGEN 13 mg/dL (7-18); CALCIUM 9.1 mg/dL (8.5-10.1); CHLORIDE 101 mmol/L (98-107); CO2 33 mmol/L (21-32); GLUCOSE,RANDOM 158 mg/dL (74-106); POTASSIUM 3.9 mmol/L (3.5-5.1); SGOT/AST 20 U/L (15-37); SGPT/ALT 17 U/L (12-78); SODIUM 141 mmol/L (136-145); TOT PROT 7.2 g/dl (6.4-8.2)
--- NOTE | 2018-04-08 13:27 | EKG ---
Test Reason : Blood Pressure : / mmHG Vent. 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
== END 2018-04-07 23:18 | disposition home or self-care (01) ==
LOC: JER 18:19
PROC: 3E033GC Introduction of Other Therapeutic Substance into Peripheral Vein, Percutaneous Approach (ICD-10-PCS; principal; 2018-04-07)
PROC: 3E0337Z Introduction of Electrolytic and Water Balance Substance into Peripheral Vein, Percutaneous Approach (ICD-10-PCS; 2018-04-07)
DX: R11.2 Nausea with vomiting, unspecified (principal)
CPT/HCPCS: 36415; 80053; 83690; 85025; 93005; 93010; 99282-25; J7030

== ENCOUNTER 2018-04-10 12:25 | Observation (INO) | payer OTHER, BC ==
--- NOTE | 2018-04-10 13:16 | PDOC ---
History of Present Illness - General History Source: Patient Exam Limitations: No Limitations - History of Present Illness Initial Comments: 04/10/18 13:22 The patient is a 87 year old male with a significant PMH of reflux, shingles, diet-controlled DM, hypercholesterolemia and PHN presents to the emergency department with nausea and vomiting for the past few days. The patient was seen at this ER three days ago, discharged home since his symptoms improved but was told to return to the ER if symptoms persisted. As per the , the patient is still unable to tolerate PO intake. The patient is complaining today of persistent episodes of brownish colored vomit with associated hiccups and denies any alleviating factors. Allergies: Penicillins Social history: None reported Surgical history: Right Knee Surgery PCP: Dr. Nicholas Greenberg <Adrianne Colorado - Last Filed: 04/10/18 13:24> <Irma Melendrez - Last Filed: 04/10/18 23:33> <Lynn Trevizo - Last Filed: 04/11/18 09:44> - General Chief Complaint: Nausea/Vomiting Stated Complaint: REVISIT/ NAUSEA Time Seen by Provider: 04/10/18 13:14 Past History <Adrianne Colorado - Last Filed: 04/10/18 13:24> <Irma Melendrez - Last Filed: 04/10/18 23:33> - Past Medical History COPD: No Diabetes: Yes (no meds) Hypercholesterolemia: Yes - Suicide/Smoking/Psychosocial Hx Smoking History: Never smoked Have you smoked in the past 12 months: No Information on smoking cessation initiated: No Hx Alcohol Use: No Drug/Substance Use Hx: No Substance Use Type: None <Lynn Trevizo - Last Filed: 04/11/18 09:44> - Past Medical History Allergies/Adverse Reactions: Allergies Allergy/AdvReac Type Severity Reaction Status Date / Time Penicillins Allergy Intermediate Rash Verified 04/10/18 12:34 Home Medications: Ambulatory Orders Aspirin [ASA -] 81 mg PO DAILY 09/27/16 Simvastatin [Zocor -] 20 mg PO HS 09/27/16 Famotidine [Pepcid -] 20 mg PO DAILY #30 tablet 12/29/16 Review of Systems - Review of Systems Able to Perform ROS?: Yes Comments:: 04/10/18 13:23 GENERAL/CONSTITUTIONAL: No fever or chills. No weakness. HEAD, EYES, EARS, NOSE AND THROAT: No change in vision. No ear pain or discharge. No sore throat. CARDIOVASCULAR: No chest pain or shortness of breath. RESPIRATORY: No cough, wheezing, or hemoptysis. GASTROINTESTINAL: (+) Nausea and vomiting. No diarrhea or constipation. GENITOURINARY: No dysuria, frequency, or change in urination. MUSCULOSKELETAL: No joint or muscle swelling or pain. No neck or back pain. SKIN: No rash NEUROLOGIC: No headache, vertigo, loss of consciousness, or change in strength/ sensation. ENDOCRINE: No increased thirst. No abnormal weight change. HEMATOLOGIC/LYMPHATIC: No anemia, easy bleeding, or history of blood clots. ALLERGIC/IMMUNOLOGIC: No hives or skin allergy. <Adrianne Colorado - Last Filed: 04/10/18 13:24> *Physical Exam - Vital Signs Last Vital Signs Temp Pulse Resp BP Pulse Ox 98.3 F 94 H 16 112/63 04/10/18 12:30 04/10/18 12:30 04/10/18 12:30 04/10/18 12:30 04/10/18 12:30 <Adrianne Colorado - Last Filed: 04/10/18 13:24> - Vital Signs Last Vital Signs Temp Pulse Resp BP Pulse Ox 98.3 F 94 H 16 112/63 100 04/10/18 12:30 04/10/18 12:30 04/10/18 12:30 04/10/18 12:30 04/10/18 12:30 <Irma Melendrez - Last Filed: 04/10/18 23:33> - Vital Signs Last Vital Signs Temp Pulse Resp BP Pulse Ox 98.3 F 94 H 16 112/63 100 04/10/18 12:30 04/10/18 12:30 04/10/18 12:30 04/10/18 12:30 04/10/18 12:30 - Physical Exam Comments: GENERAL: Awake, alert, and fully oriented, in no acute distress. Intermittent belching/hiccups. HEAD: No signs of trauma EYES: PERRLA, EOMI, sclera anicteric, conjunctiva clear ENT: Auricles normal inspection, hearing grossly normal, nares patent, oropharynx clear without exudates. Dry mucosa NECK: Normal ROM, supple, no lymphadenopathy, JVD, or masses LUNGS: Breath sounds equal, clear to auscultation bilaterally. No wheezes, and no crackles HEART: Regular rate and rhythm, normal S1 and S2, no murmurs, rubs or gallops ABDOMEN: Soft, +epigastric tenderness, hyperactive bowel sounds. +Guarding, no rebound. No masses EXTREMITIES: Normal range of motion, no edema. No clubbing or cyanosis. No cords, erythema, or tenderness NEUROLOGICAL: Cranial nerves II through XII grossly intact. Normal speech, normal gait SKIN: Warm, Dry, normal turgor, no rashes or lesions noted. <Lynn Trevizo - Last Filed: 04/11/18 09:44> ED Treatment Course - LABORATORY CBC & Chemistry Diagram: 04/10/18 13:25 04/10/18 13:25 - ADDITIONAL ORDERS Additional order review: Laboratory Results 04/10/18 04/10/18 04/10/18 14:05 13:25 13:25 PT with INR 12.10 INR 1.07 PTT (Actin FS) 25.3 L Sodium 138 Potassium 3.5 Chloride 97 L Carbon Dioxide 31 Anion Gap 10 BUN 11 Creatinine 0.9 Creat Clearance w eGFR > 60 Random Glucose 147 H Calcium 9.0 Total Bilirubin 0.8 D AST 17 ALT 15 Alkaline Phosphatase 64 Total Protein 7.1 Albumin 3.6 Lipase 99 Urine Color Yellow Urine Appearance Clear Urine pH 7.0 Ur Specific Jennings 1.025 Urine Protein 1+ H Urine Glucose (UA) 1+ H Urine Ketones 2+ H Urine Blood Negative Urine Nitrite Negative Urine Bilirubin Negative Urine Urobilinogen 4.0 e.u/dl Ur Leukocyte Esterase Negative Urine WBC (Auto) 2 Urine RBC (Auto) 3 Ur Epithelial Cells Rare Urine Bacteria Rare Urine Mucus Few Blood Type Antibody Screen 04/10/18 13:25 PT with INR INR PTT (Actin FS) Sodium Potassium Chloride Carbon Dioxide Anion Gap BUN Creatinine Creat Clearance w eGFR Random Glucose Calcium Total Bilirubin AST ALT Alkaline Phosphatase Total Protein Albumin Lipase Urine Color Urine Appearance Urine pH Ur Specific Jennings Urine Protein Urine Glucose (UA) Urine Ketones Urine Blood Urine Nitrite Urine Bilirubin Urine Urobilinogen Ur Leukocyte Esterase Urine WBC (Auto) Urine RBC (Auto) Ur Epithelial Cells Urine Bacteria Urine Mucus Blood Type O POSITIVE Antibody Screen Negative 04/10/18 13:25 RBC 5.68 H MCV 83.8 MCHC 33.6 RDW 13.9 MPV 8.3 Neutrophils % 85.8 H Lymphocytes % 8.6 D Monocytes % 5.1 Eosinophils % 0.0 Basophils % 0.5 - Medications Given in the ED: ED Medications Discontinued Medications Generic Name Dose Route Start Last Admin Trade Name Don PRN Reason Stop Dose Admin Acetaminophen 1,000 mg 04/10/18 13:17 04/10/18 13:25 Ofirmev Injection - IVPB 04/10/18 13:18 1,000 mg ONCE ONE Administration Famotidine/Sodium Chloride 20 mg in 50 mls @ 100 mls/hr 04/10/18 13:17 15:40 Pepcid 20 Mg Premixed Ivpb - IVPB 04/10/18 13:46 100 mls/hr ONCE ONE Administration Sodium Chloride 1,000 mls @ 1,000 mls/hr 04/10/18 13:17 04/10/18 13:25 Normal Saline - IV 04/10/18 14:16 1,000 mls/hr ASDIR STA Administration Sodium Chloride 1,000 mls @ 1,000 mls/hr 04/10/18 15:04 04/10/18 15:40 Normal Saline - IV 04/10/18 16:03 1,000 mls/hr ASDIR STA Administration Famotidine/Sodium Chloride 20 mg in 50 mls @ 100 mls/hr 04/10/18 20:15 19:46 Pepcid 20 Mg Premixed Ivpb - IVPB 04/10/18 20:44 100 mls/hr ONCE ONE Administration Metoclopramide HCl 10 mg 04/10/18 17:40 04/10/18 17:55 Reglan Injection - IVPB 04/10/18 17:41 10 mg ONCE ONE Administration Ondansetron HCl 4 mg 04/10/18 13:17 04/10/18 13:25 Zofran Injection IVPUSH 04/10/18 13:18 4 mg ONCE ONE Administration Ondansetron HCl 4 mg 04/10/18 15:09 04/10/18 15:40 Zofran Injection IVPUSH 04/10/18 15:10 4 mg ONCE ONE Administration Irma Olguin - Last Filed: 04/10/18 23:33> - LABORATORY CBC & Chemistry Diagram: 04/11/18 07:00 04/11/18 07:00 <Lynn Trevizo - Last Filed: 04/11/18 09:44> Medical Decision Making - Medical Decision Making 04/10/18 23:33 I received pt on signoout. Patient Name: ANA HICKEY THIS IS A PRELIMINARY REPORT FROM [facility] DATE OF SERVICE: 2018-04-10 16:32:37 IMAGES: [id number] EXAM: CT ABDOMEN AND PELVIS WITH IV CONTRAST HISTORY: Nausea and vomiting TECHNIQUE: Contiguous axial images were obtained utilizing a multislice, multidetector CT scanner. Post-processed reformations were also submitted for review. COMPARISON: None available FINDINGS: Lower Chest: Consolidative opacities in the lower lobes , right greater than left, with small bilateral pleural effusions. Abdomen: Liver:: Mild hepatic steatosis. Bile Ducts: Within normal limits. Gallbladder:: Within normal limits. Pancreas:: Within normal limits. Spleen:: Within normal limits. Adrenals: Within normal limits. Kidneys: No evidence of hydronephrosis or nephrolithiasis. Stomach:: Small sliding hiatal hernia with diffuse thickening of the esophagus compatible with gastroesophageal reflux and esophagitis. In addition, there is inflammatory/ infectious gastroduodenitis with moderate distention of the stomach with air fluid level. Bowel:: No evidence of small bowel obstruction or mass. Normal appendix is identified. Colonic diverticulosis without evidence of acute diverticulitis. Slightly prominent rectosigmoid colon, which may related to under distention. However, the possibility of inflammatory/ infectious proctitis cannot be excluded. Pelvis: Reproductive Organs: Enlarged prostate gland. Bladde: Within normal limits. Vessels: Aorta: Atherosclerotic calcification of the aorta without aneurysm or dissection. Retroperitoneum: Within normal limits. Bones: : No suspicious osseous lesions. Lumbar spondylosis. IMPRESSION: 1. Small sliding hiatal hernia with diffuse thickening of the esophagus compatible with gastroesophageal reflux and esophagitis. In addition, there is inflammatory/ infectious gastroduodenitis with moderate distention of the stomach with air fluid level concerning for gastroparesis. 2. No evidence of small bowel obstruction or mass. Normal appendix is identified. Colonic diverticulosis without evidence of acute diverticulitis. Slightly prominent rectosigmoid colon, which may related to under distention. However, the possibility of inflammatory/ infectious proctitis cannot be excluded. 3. Consolidative opacities in the lower lobes , right greater than left, with small bilateral pleural effusions. THIS DOCUMENT HAS BEEN ELECTRONICALLY SIGNED Pt will be admitted for IV abx for his gastroduodenitis and proctitis. He is unable to take PO meds, as he has reflux, vomiting and hiccuping and belchin. Unclear if he has an outlet obstruction, he has no pain with palpation at this time. No indication for NGTube at this time. Pt will require GI eval. Pt admitted to the hospitalists, as his PMD is Dr. Greenberg at [facility]. <Irma Melendrez - Last Filed: 04/10/18 23:33> - Medical Decision Making 04/10/18 15:08 Pt has returned from ultrasound. No acute findings to explain his symptoms. He continues to have intermittent belching/hiccups. Will give an additional dose of zofran and sent for CT. 04/10/18 19:01 Pt signed out to Dr. Melendrez. He has returned from CT, required a dose of reglan, as he continued to have nausea and belching. He is awaiting read of CT, will require admission. <Lynn Trevizo - Last Filed: 04/11/18 09:44> *DC/Admit/Observation/Transfer - Attestations Scribe Attestion: 04/10/18 13:24 Documentation prepared by Adrianne Colorado, acting as medical assisting program director for Lynn Trevizo MD. <Adrianne Colorado - Last Filed: 04/10/18 13:24> - Discharge Dispostion Decision to Admit order: Yes <Irma Melendrez - Last Filed: 04/10/18 23:33> <Lynn Trevizo - Last Filed: 04/11/18 09:44> Diagnosis at time of Disposition: Gastroduodenitis, Proctitis - Discharge Dispostion Condition at time of disposition: Guarded
[2018-04-10] MEDS ORDERED: SODIUM CHLORIDE 1,000 ML IV STA ×2 (13:17→15:04)
[2018-04-10] MEDS ORDERED: ACETAMINOPHEN 1000 MG/100 ML VIAL (NON FORMULARY) IVPB ONE (13:17)
[2018-04-10] MEDS ORDERED: ONDANSETRON 4 MG/2 ML VIAL IVPUSH ONE ×2 (13:17→15:09)
[2018-04-10] MEDS ORDERED: FAMOTIDINE 20 MG/50 ML IVPB 20 MG/50 ML MG IVPB ONE ×4 (13:17→21:29)
[2018-04-10] MEDS ORDERED: ACETAMINOPHEN INJECTION 100 ML IVPB ONE (13:27)
[2018-04-10] MEDS ORDERED: ONDANSETRON 4 MG/2 ML VIAL ONE ×2 (13:27→15:37)
[2018-04-10 13:31] LABS: BASO % 0.5 % (0-2.0); HEMATOCRIT 47.5 % (35.4-49); LYMPH % 8.6 % (8-40); MCH 28.1 pg (25.7-33.7); MCHC 33.6 g/dl (32.0-35.9); MEAN CELL VOLUME 83.8 fl (80-96); MEAN PLT VOLUME 8.3 fl (7.5-11.1); MONO % 5.1 % (3.8-10.2); NEUT % 85.8 % (42.8-82.8); PLATELET COUNT 227 K/MM3 (134-434); RBC 5.68 M/mm3 (4.00-5.60); RDW 13.9 % (11.9-15.9); WHITE BLOOD COUNT 9.9 K/mm3 (4.0-10.0)
[2018-04-10 14:01] LABS: INR 1.07 (0.82-1.09); PROTHROMBIN TIME (PATIENT) 12.1 SEC (9.7-13.0)
[2018-04-10 14:04] LABS: ACTIVATED PTT 25.3 SECONDS (26.9-34.4)
[2018-04-10 14:11] LABS: ALBUMIN 3.6 g/dl (3.4-5.0); ANION GAP 10 (8-16); BILIRUBIN,TOTAL 0.8 mg/dL (0.2-1.0); BLOOD UREA NITROGEN 11 mg/dL (7-18); CHLORIDE 97 mmol/L (98-107); CO2 31 mmol/L (21-32); CREATININE 0.9 mg/dL (0.7-1.3); GLUCOSE,RANDOM 147 mg/dL (74-106); LIPASE 99 U/L (73-393); POTASSIUM 3.5 mmol/L (3.5-5.1); SGOT/AST 17 U/L (15-37); SGPT/ALT 15 U/L (12-78); SODIUM 138 mmol/L (136-145)
[2018-04-10 14:12] LABS: ALK PHOS 64 U/L (45-117); TOT PROT 7.1 g/dl (6.4-8.2)
[2018-04-10 14:30] LABS: URINE APPEARANCE CLEAR; URINE BILIRUBIN NEGATIVE (<2.0 mg/dL); URINE BLOOD NEGATIVE (NEGATIVE); URINE COLOR YELLOW; URINE GLUCOSE (UA) 1+ (NEGATIVE); URINE KETONE 2+ (NEGATIVE); URINE LEUK ESTERASE NEGATIVE (NEGATIVE); URINE NITRITE NEGATIVE (NEGATIVE); URINE UROBILINOGEN 4.0 E.U/dl mg/dL (0.2-1.0)
[2018-04-10 14:31] LABS: URINE PROTEIN 1+ (NEGATIVE)
[2018-04-10 14:35] LABS: EPI CELLS RARE /HPF (FEW); URINE BACTERIA RARE /hpf (NONE SEEN); URINE MUCUS FEW
[2018-04-10] MEDS ORDERED: METOCLOPRAMIDE HCL INJECTION 10 MG/2 ML VIAL IVPB ONE (17:40)
[2018-04-10] MEDS ORDERED: METOCLOPRAMIDE HCL INJECTION 10 MG/2 ML VIAL ONE (17:51)
--- NOTE | 2018-04-10 21:49 | HP ---
CHIEF COMPLAINT: PO intolerance, vomiting, nausea PCP: Dr. Greenberg ([facility]) HISTORY OF PRESENT ILLNESS: 87yo pleasant M with history of GERD, Post-herpetic neuralgia, hyperlipidemia and Type 2 DM (diet controlled) who returns to the ER with intolerance to food and drink and copious amounts of vomiting. Pt initially had this start on Thursday04/06/18 after going to a restaurant and eating some white rice, chicken, and some soup when he started to develop some nausea. Pt's reports giving him some tea and then pt started vomiting nonbloody/nonbilious vomiting at that time. Pt was seen here in the ER and was discharged due to tolerating crackers with instructions to return if he continued to have vomiting past 48 more hours. Yesterday pt was feeling slightly better until today when he started to develop nausea and vomiting once again. Pt and his note several episodes of vomiting first clear fluid and then dark/greenish emesis. No blood was noted. Again he could not tolerate any food or drink and returned to the ER for further evaluation. He endorses loss of his usual appetite in the past year and a 10lb weight loss within this past year. Pt is unsure of exact time of his last colonoscopy, but reports it being within the last 5-10 years (closer to 10) . Pt denies fever/chills, lightheadedness, dizziness, shortness of breath, chest pain/discomfort, palpitations, diarrhea, constipation, current abdominal pain, current nausea (after medications), dysuria, polyuria, flushing, and intolerance to heat or cold. ER course was notable for: (1) 2LNS total (2) Zofran 4mg x2; Reglan 10mg x1 (3) CTAP - distended stomach with gastroduodenitis and proctitis. Air down to the rectum noted. Recent Travel: [place] (within past 2 months) PAST MEDICAL HISTORY: Diet Controlled DM, HLD, GERD, Post Herpetic Neuralgia PAST SURGICAL HISTORY: R knee replacement (many years ago) Rotator cuff repair L (many years ago) Social History: Smoking: Never Alcohol: Occasional with dinner Drugs: None Family History: No family hx of cancer No family hx of thyroid disease Allergies Penicillins Allergy (Intermediate, Verified 04/10/18 12:34) Pruritic Rash HOME MEDICATIONS: Home Medications Medication Instructions Recorded Aspirin [ASA -] 81 mg PO DAILY 09/27/16 Simvastatin [Zocor -] 20 mg PO HS 09/27/16 Famotidine [Pepcid -] 20 mg PO DAILY #30 tablet 12/29/16 REVIEW OF SYSTEMS CONSTITUTIONAL: Present: loss of appetite, weight change Absent: fever, chills, diaphoresis, generalized weakness, malaise, HEENT: Absent: rhinorrhea, nasal congestion, throat pain, throat swelling, difficulty swallowing, mouth swelling, ear pain, eye pain, visual changes CARDIOVASCULAR: Absent: chest pain, syncope, palpitations, irregular heart rate, lightheadedness , peripheral edema RESPIRATORY: Absent: cough, shortness of breath, dyspnea with exertion, orthopnea, wheezing, stridor, hemoptysis GASTROINTESTINAL: Present: nausea, vomiting, Absent: abdominal pain, abdominal distension, diarrhea, constipation, melena, hematochezia GENITOURINARY: Absent: dysuria, frequency, urgency, hesitancy, hematuria, flank pain MUSCULOSKELETAL: Absent: back pain, neck pain ENDOCRINE: Absent: unexplained weight gain, heat intolerance, cold intolerance NEUROLOGIC: Absent: headache, focal weakness or paresthesias, dizziness, unsteady gait, seizure, mental status changes, bladder or bowel incontinence PHYSICAL EXAMINATION Vital Signs - 24 hr 04/10/18 12:30 Temperature 98.3 F Pulse Rate 94 H Respiratory 16 Rate Blood Pressure 112/63 O2 Sat by Pulse 100 Oximetry (%) GENERAL: NAD, awake, alert, and fully oriented HEENT: EOMI, DANAY, sclera anicteric, no nystagmus noted, dry mucosa NECK: No lymphadenopathy, No thyromegal or nodules, soft LUNGS: CTA bilaterally. No wheezes, and no crackles. No accessory muscle use. HEART: RRR, normal S1 and S2 without murmur ABDOMEN: Soft, nondistended, hypoactive BS, nontender with palpation, negative morataya's, no guarding, no hepatomegaly, no masses. MUSCULOSKELETAL: No bony deformities or tenderness. No CVA tenderness. EXTREMITIES: 2+ DP pulses, warm, well-perfused. No peripheral edema. 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 Strength 5/5 flexion and extension of upper and lower extremities. Sensation to dull touch intact in all areas. Normal speech. Normal gait. PSYCHIATRIC: Cooperative. Good eye contact. Appropriate mood and affect. SKIN: Warm, dry and peeling skin on LLExt (due to sunburn), no rashes or lesions noted Laboratory Results - last 24 hr 04/10/18 04/10/18 04/10/18 13:25 13:25 13:25 WBC 9.9 RBC 5.68 H Hgb 16.0 Hct 47.5 MCV 83.8 MCH 28.1 MCHC 33.6 RDW 13.9 Plt Count 227 MPV 8.3 Neutrophils % 85.8 H Lymphocytes % 8.6 D Monocytes % 5.1 Eosinophils % 0.0 Basophils % 0.5 Nucleated RBC % 0 PT with INR 12.10 INR 1.07 PTT (Actin FS) 25.3 L Sodium Potassium Chloride Carbon Dioxide Anion Gap BUN Creatinine Creat Clearance w eGFR Random Glucose Calcium Total Bilirubin AST ALT Alkaline Phosphatase Total Protein Albumin Lipase Urine Color Urine Appearance Urine pH Ur Specific [place] Urine Protein Urine Glucose (UA) Urine Ketones Urine Blood Urine Nitrite Urine Bilirubin Urine Urobilinogen Ur Leukocyte Esterase Urine WBC (Auto) Urine RBC (Auto) Ur Epithelial Cells Urine Bacteria Urine Mucus Blood Type O POSITIVE Antibody Screen Negative 04/10/18 04/10/18 13:25 14:05 WBC RBC Hgb Hct MCV MCH MCHC RDW Plt Count MPV Neutrophils % Lymphocytes % Monocytes % Eosinophils % Basophils % Nucleated RBC % PT with INR INR PTT (Actin FS) Sodium 138 Potassium 3.5 Chloride 97 L Carbon Dioxide 31 Anion Gap 10 BUN 11 Creatinine 0.9 Creat Clearance w eGFR > 60 Random Glucose 147 H Calcium 9.0 Total Bilirubin 0.8 D AST 17 ALT 15 Alkaline Phosphatase 64 Total Protein 7.1 Albumin 3.6 Lipase 99 Urine Color Yellow Urine Appearance Clear Urine pH 7.0 Ur Specific [place] 1.025 Urine Protein 1+ H Urine Glucose (UA) 1+ H Urine Ketones 2+ H Urine Blood Negative Urine Nitrite Negative Urine Bilirubin Negative Urine Urobilinogen 4.0 e.u/dl Ur Leukocyte Esterase Negative Urine WBC (Auto) 2 Urine RBC (Auto) 3 Ur Epithelial Cells Rare Urine Bacteria Rare Urine Mucus Few Blood Type Antibody Screen ASSESSMENT/PLAN: 87yo M with hx GERD, PHN, HLD, and diet controlled DM who presents with recurrent PO intolerance with N and nonbloody/bilious Vomiting 1) Gastroduodenitis --Viral vs. 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 Air to rectum noted and no obstructive patterning --RUQ US w/o evidence of acute cholecystitis --NPO now for bowel rest --Reglan 10mg q6h PRN (last dose 5pm 04/10) --IVF for rehydration purposes --EKG now (previous Qtc normal @ 449, but will confirm) --IV Levaquin and Flagyl 500mg x1 in Ed --Can observe off antibiotics due to being most likely viral --Will need to collect records from Dr. Greenberg of [facility] (PCP) in regards to last colonoscopy/EGD and findings 2) HLD --Continue Simvastatin home dose tomorrow 3) DM --Reportedly diet controlled --Will check A1c in AM labs FEN: Fluids: LR@100cc/hr for hydration Electrolyte abnormalities: None Nutrition: NPO for bowel rest PPX: DVT - Heparin SQ GI - Protonix 40mg IVP qdaily Dispo: obs M/S; PO challenge tomorrow Case discussed with Dr. Cottrell and Dr. Marcelle Peacock, DO - IM PGY-1 Visit type - Emergency Visit Emergency Visit: Yes ED Registration Date: 04/10/18 Care time: The patient presented to the Emergency Department on the above date and was hospitalized for further evaluation of their emergent condition. - New Patient This patient is new to me today: Yes Date on this admission: 04/11/18 - Critical Care Critical Care patient: No Hospitalist Screening - Colonoscopy Questionnaire Colonoscopy Questionnaire: Colonoscopy Questionnaire - Patient: 50 - 75 years old and never had a screening colonoscopy: Unknown History of colon or rectal polyps, or CA: Unknown History of IBD, Crohn's disease or UC: Unknown History of abdominal radiation therapy as a child: Unknown - Relative: 1 with colon or rectal CA, or polyps at age 60 or younger: Unknown Colon or rectal CA diagnosed at age 45 or younger: Unknown Multiple relatives with colon or rectal CA: Unknown - Outcome: Screening Result: Negative Screen
[2018-04-10] MEDS ORDERED: SODIUM CHLORIDE 1,000 ML IV SCH (22:15)
[2018-04-10] MEDS ORDERED: LACTATED RINGERS SOLUTION 1,000 ML/1,000 ML INFUS.BAG IV SCH (22:30)
[2018-04-11] MEDS ORDERED: METOCLOPRAMIDE HCL INJECTION 10 MG/2 ML VIAL IVPUSH PRN (00:01)
[2018-04-11 02:05] VITALS: BMI 23.3
--- NOTE | 2018-04-11 05:48 | PN ---
Teaching Attending Note Name of Resident: Colten Peacock ATTENDING PHYSICIAN STATEMENT I saw and evaluated the patient. Chart, data, imaging reviewed. I reviewed the resident's note and discussed the case with the resident. I agree with the resident's findings and plan as documented. SUBJECTIVE: 87yo man with GERD, Post-herpetic neuralgia, hyperlipidemia, DM c/o nausea and vomiting after eating, started on 04/06, seen in ER but discharged after he was seen tolerating crackers. Pt returns with similar vomiting episode. No mention of sick contacts or recent travels. OBJECTIVE: Last Vital Signs Temp Pulse Resp BP Pulse Ox 98.4 F 83 20 136/62 96 04/11/18 01:55 04/11/18 01:55 04/11/18 01:55 04/11/18 01:55 04/11/18 01:55 general nad, aaox3 heent -PERRLA, no scleral icterus neck -supple cv-s1+s2+rrr chest- cta b/l abdomen- soft, nt, bs+ skin - no rashes appreciated Abnormal Lab Results 04/10/18 04/10/18 04/10/18 13:25 13:25 13:25 RBC 5.68 H Neutrophils % 85.8 H PTT (Actin FS) 25.3 L Chloride 97 L Random Glucose 147 H Urine Protein Urine Glucose (UA) Urine Ketones 04/10/18 14:05 RBC Neutrophils % PTT (Actin FS) Chloride Random Glucose Urine Protein 1+ H Urine Glucose (UA) 1+ H Urine Ketones 2+ H CT scan of abdomen/pelvis- no free air under diaphragm, no bowel obstruction seen ASSESSMENT AND PLAN: #87yo man with acute gastroenteritis with nausea, vomiting, not toleratingPO. -observation -no antibiotics for now -IV fluid hydration -zofran 4mg IV q6hrs if nausea/vomiting -NPO for now dvt ppx -heparin sc -see resident note for retails
[2018-04-11] MEDS: HEPARIN NA (PORCINE) 5,000 UNITS/ML 1ML VIAL SQ SCH ×3 (06:51→22:06)
[2018-04-11 07:44] LABS: HEMATOCRIT 38.6 % (35.4-49); HEMOGLOBIN 13.4 GM/dL (11.7-16.9); MCH 28.9 pg (25.7-33.7); MCHC 34.6 g/dl (32.0-35.9); MEAN CELL VOLUME 83.5 fl (80-96); PLATELET COUNT 167 K/MM3 (134-434); RBC 4.63 M/mm3 (4.00-5.60); RDW 13.9 % (11.9-15.9); WHITE BLOOD COUNT 7.6 K/mm3 (4.0-10.0)
[2018-04-11 08:17] LABS: ANION GAP 7 (8-16); BLOOD UREA NITROGEN 11 mg/dL (7-18); CALCIUM 8.1 mg/dL (8.5-10.1); CHLORIDE 107 mmol/L (98-107); CO2 25 mmol/L (21-32); GLUCOSE,RANDOM 100 mg/dL (74-106); POTASSIUM 3.7 mmol/L (3.5-5.1); SODIUM 139 mmol/L (136-145)
[2018-04-11 08:18] LABS: CREATININE 0.8 mg/dL (0.7-1.3)
[2018-04-11] MEDS: PANTOPRAZOLE SODIUM 40 MG VIAL IVPUSH SCH (09:10)
--- NOTE | 2018-04-11 11:59 | PN ---
Progress Note (short form) - Note Progress Note: Subjective: no fever or chills . has no abd pain, no N/V. no cough , no SOB . has hiccups Objective: Vital Signs: Last Vital Signs Temp Pulse Resp BP Pulse Ox 98.9 F 69 20 120/57 96 04/11/18 10:00 04/11/18 10:00 04/11/18 10:00 04/11/18 10:00 04/11/18 01:55 Laboratory Results - last 24 hr 04/10/18 04/10/18 04/10/18 13:25 13:25 13:25 WBC 9.9 RBC 5.68 H Hgb 16.0 Hct 47.5 MCV 83.8 MCH 28.1 MCHC 33.6 RDW 13.9 Plt Count 227 MPV 8.3 Neutrophils % 85.8 H Lymphocytes % 8.6 D Monocytes % 5.1 Eosinophils % 0.0 Basophils % 0.5 Nucleated RBC % 0 PT with INR 12.10 INR 1.07 PTT (Actin FS) 25.3 L Sodium Potassium Chloride Carbon Dioxide Anion Gap BUN Creatinine Creat Clearance w eGFR POC Glucometer Random Glucose Hemoglobin A1c % Calcium Total Bilirubin AST ALT Alkaline Phosphatase Total Protein Albumin Lipase Urine Color Urine Appearance Urine pH Ur Specific [place] Urine Protein Urine Glucose (UA) Urine Ketones Urine Blood Urine Nitrite Urine Bilirubin Urine Urobilinogen Ur Leukocyte Esterase Urine WBC (Auto) Urine RBC (Auto) Ur Epithelial Cells Urine Bacteria Urine Mucus Blood Type O POSITIVE Antibody Screen Negative 04/10/18 04/10/18 04/11/18 13:25 14:05 00:04 WBC RBC Hgb Hct MCV MCH MCHC RDW Plt Count MPV Neutrophils % Lymphocytes % Monocytes % Eosinophils % Basophils % Nucleated RBC % PT with INR INR PTT (Actin FS) Sodium 138 Potassium 3.5 Chloride 97 L Carbon Dioxide 31 Anion Gap 10 BUN 11 Creatinine 0.9 Creat Clearance w eGFR > 60 POC Glucometer 142.69727 Random Glucose 147 H Hemoglobin A1c % Calcium 9.0 Total Bilirubin 0.8 D AST 17 ALT 15 Alkaline Phosphatase 64 Total Protein 7.1 Albumin 3.6 Lipase 99 Urine Color Yellow Urine Appearance Clear Urine pH 7.0 Ur Specific [place] 1.025 Urine Protein 1+ H Urine Glucose (UA) 1+ H Urine Ketones 2+ H Urine Blood Negative Urine Nitrite Negative Urine Bilirubin Negative Urine Urobilinogen 4.0 e.u/dl Ur Leukocyte Esterase Negative Urine WBC (Auto) 2 Urine RBC (Auto) 3 Ur Epithelial Cells Rare Urine Bacteria Rare Urine Mucus Few Blood Type Antibody Screen 04/11/18 04/11/18 04/11/18 07:00 07:00 07:00 WBC 7.6 RBC 4.63 Hgb 13.4 D Hct 38.6 D MCV 83.5 MCH 28.9 MCHC 34.6 RDW 13.9 Plt Count 167 D MPV 8.0 Neutrophils % Lymphocytes % Monocytes % Eosinophils % Basophils % Nucleated RBC % PT with INR INR PTT (Actin FS) Sodium 139 Potassium 3.7 Chloride 107 D Carbon Dioxide 25 Anion Gap 7 L BUN 11 Creatinine 0.8 Creat Clearance w eGFR POC Glucometer Random Glucose 100 D Hemoglobin A1c % 6.5 H Calcium 8.1 L Total Bilirubin AST ALT Alkaline Phosphatase Total Protein Albumin Lipase Urine Color Urine Appearance Urine pH Ur Specific [place] Urine Protein Urine Glucose (UA) Urine Ketones Urine Blood Urine Nitrite Urine Bilirubin Urine Urobilinogen Ur Leukocyte Esterase Urine WBC (Auto) Urine RBC (Auto) Ur Epithelial Cells Urine Bacteria Urine Mucus Blood Type Antibody Screen Physical Exam: NAD, MMM, no LAP CV: RRR, 2/6 DM at LUSB Lungs: CATB Abd: soft, NT, ND , hypoactive BS. EXt : no edema or erythema Imaging: CT scan of abd/pelvis reviewed. Assessment/Plan: Pleasant 87 y/o man with h/o GERD, pre-DM , and hyperlipidemia who presented with N/V .He was found to have gastric outlet obstruction 1- Gastric outlet obstruction : with thickening of duodenal, gastric and lower esophageal wall. unclear etiology. ? inflammation , infiltrative process like lymphoma , or ulcer - NPO . Ok for sips of water. - GI for EGD - PPI - Helicobacter stool Ag - IVF 2- CT with infiltrates in bases. he has no clinical signs of PNA . no need for Abx. 3- new diagnosis of DM : has been pre-diabetic and was managed with diet and exercise - prefer to d/w PCP HLOC Visit type - Emergency Visit Emergency Visit: Yes ED Registration Date: 04/10/18 Care time: The patient presented to the Emergency Department on the above date and was hospitalized for further evaluation of their emergent condition. - New Patient This patient is new to me today: Yes Date on this admission: 04/11/18 - Critical Care Critical Care patient: No
[2018-04-11] MEDS: SODIUM CHLORIDE 1,000 ML IV SCH (14:51)
--- NOTE | 2018-04-11 15:27 | PN ---
Progress Note (short form) - Note Progress Note: GI CONSULT FOR DR TIJERINA PLEASE SEE COMPLETE DICTATION CURRENTLY ASYMPTOMATIC EXAM BENIGN SIMMONS/G++ STOOL ON BABY ASA CT SCAN FINDINGS NOTED/ LIKELY REFLECT ARTIFACT OF STUDY----> BUT AGREE A DX WILL BETTER ASSESS AND BE DEFINITIVE NPO AT [place] FOR EGD / PT CONSENTS AGREE WTIH CURRENT RX NO EVIDENCE OF ANY ACUTE ABDOMINAL OR BILIARY PROCESS NURA LAYNE MD
--- NOTE | 2018-04-11 17:06 | CONS ---
DATE OF CONSULTATION: 04/11/2018 I was asked by Dr. Irma Melendrez to evaluate this patient for nausea, vomiting, and hiccups. The patient is an 87-year-old gentleman, from [place], with past medical history of chronic gastroesophageal reflux disease, shingles, diet-controlled diabetes, hypercholesterolemia, hypertension, who presented to the emergency room yesterday with nausea and vomiting for a couple of days intermittently. The patient apparently was seen 3 days ago and sent home from the ER. He had blood work. He was told he was dehydrated. He received IV fluid and he was sent home. The patient then came back with episodes of brown-colored vomiting with hiccups. He denies having any blood in vomitus. He denies change in bowel habits. He denies diarrhea, constipation. He says he has had endoscopy in the past many years ago and was told that he had gastric ulcers, this was in [facility], and he has had colonoscopy in the past without finding, according to his recollection. His PCP is Dr. Nicholas Covarrubias, at [facility]. The patient is allergic to PENICILLIN. He does not smoke. He drinks socially. He is and he is retired. He worked at [facility] for over 40 years. He has had right knee surgery and he has had rotator cuff surgery. Other than that, he really has no other medical history. As an outpatient, he was taking aspirin, Zocor, Pepcid. The aspirin is a baby aspirin. He has not been on anticoagulation in the past. Apparently, when he came to the hospital with these complaints, they did an ultrasound of the right upper quadrant and he had a small right pleural effusion. There was no evidence of any gallstones or cholecystitis. There were no significant findings on the exam, such that a CAT scan of the abdomen and pelvis was performed and that scan noted marked thickening of the distal esophagus suspicious for esophagitis and gastric thickening of the gastric wall, as well as proximal duodenal thickening, raising question of gastric outlet obstruction, and it was recommended that he undergo colonoscopy. In terms of medications, the patient has been getting heparin subcutaneous, IV fluid, and Protonix. On exam, he appears to be in absolutely no acute distress. He appears younger than his stated age. He is up and about, he is afebrile. His vital signs are completely stable. Blood pressure 120/50, pulse of 70. On physical examination, his abdomen is not distended, it is thin, symmetric, without scars. It is soft. There is no tenderness. Bowel sounds are heard. There are no masses, rebound, or guarding. Rectal exam reveals stool that is brothers but guaiac positive. His lab data is notable in that his CBC is normal, white count is 7, hemoglobin 13.4, hematocrit 38, and MCV of 83, platelets 167,000. His chemistries are essentially unremarkable. It is my impression that the patient is an 87-year-old gentleman with diet-controlled diabetes, hypertension, who comes in with known reflux, has been having some intermittent nausea and vomiting. He was here a couple days ago and the blood work was unremarkable, and he was discharged. He came back with recurrence of symptoms. He has been losing weight slowly. He has some early satiety. He is not vomiting now but his CAT scan shows thickening of the distal esophagus and possible outlet obstruction of the pyloric duodenal bulb region. Clearly an upper endoscopy is indicated at this time. The patient, after discussing the procedure and the risks with him, he granted informed consent. Will keep him n.p.o. at midnight and will see if we can get an upper endoscopy performed tomorrow. Based on the endoscopic studies, further recommendations will follow. Currently, I would think it would be okay to give him trial of a clear liquid or liquid diet and see how he tolerates. His LFTs are normal, as was his sonographic CAT scan of the right upper quadrant. This did not appear to be an acute biliary attack. We will continue to be available to aide in the management of this patient. Thank you kindly. KOBE LYMAN M.D. [id number]
--- NOTE | 2018-04-11 22:08 | EKG ---
Test Reason : Blood Pressure : / mmHG Vent. Rate : 080 BPM Atrial Rate : 080 BPM P-R Int : 174 ms QRS Dur : 076 ms QT Int : 364 ms P-R-T Axes : 042 003 078 degrees QTc Int : 419 ms POOR DATA QUALITY, INTERPRETATION MAY BE ADVERSELY AFFECTED NORMAL SINUS RHYTHM SEPTAL INFARCT (CITED ON OR BEFORE 28-DEC-2016) ABNORMAL ECG WHEN COMPARED WITH ECG OF 07-APR-2018 22:48, NO SIGNIFICANT CHANGE WAS FOUND Confirmed by LEXI CARUSO MD ([id number]) on 04/11/2018 10:08:40 PM Referred By: Confirmed By:LEXI CARUSO MD
[2018-04-12] MEDS: HEPARIN NA (PORCINE) 5,000 UNITS/ML 1ML VIAL SQ SCH (06:21)
[2018-04-12] MEDS: PANTOPRAZOLE SODIUM 40 MG VIAL IVPUSH SCH ×2 (09:28→21:00)
--- NOTE | 2018-04-12 12:02 | PROC ---
Endoscopy Procedure Endoscopy procedure completed. Please see scanned procedure report. severe duodenitits in the bulb. Unable to advance to the 2nd portion deu to edema. Duodenal bulb biopsies taken gastritis in the antrum, biopsied severe aguila-esophagitits, biopsied Liquid carafare 1 gm po qid Protonix 40 mg IV BID Soft diet Repeat EGD in 7 days to assess 2nd portion of the duodenum
[2018-04-12 13:34] LABS: MAGNESIUM 2.1 mg/dL (1.8-2.4); POTASSIUM 3.9 mmol/L (3.5-5.1)
[2018-04-12 13:35] LABS: PHOSPHOROUS 2.9 mg/dL (2.5-4.9)
[2018-04-12] MEDS: SODIUM CHLORIDE 1,000 ML IV SCH (13:36)
[2018-04-12] MEDS: SUCRALFATE 1 GM/10 ML UNIT DOSE CUPS PO SCH ×2 (16:37→20:59)
--- NOTE | 2018-04-12 17:13 | PN ---
Teaching Attending Note Name of Resident: Colten Peacock ATTENDING PHYSICIAN STATEMENT I saw and evaluated the patient. I reviewed the resident's note and discussed the case with the resident. I agree with the resident's findings and plan as documented. SUBJECTIVE: No fever or chills. has no Abd pain. no N/v . OBJECTIVE: NAD, MMM CV: RRR, 2/6 DM at LUSB Lungs: CATB Abd: soft, NT, ND , hypoactive BS. EXt : no edema or erythema Imaging: CT scan of abd/pelvis reviewed. Assessment/Plan: Pleasant 87 y/o man with h/o GERD, pre-DM , mild dementia , and hyperlipidemia who presented with N/V .He was found to have gastric outlet obstruction 1- Gastric outlet obstruction : EGd with severe inflammation of duodenum and stomach and esophagitis Bx taken - soft diet - carafate and IV PPI - will need repeat EGD in 1 week - gentle hydration for now 2- New diagnosis of DM : A1c 6.5 - prefers to d/w PCP. if he tolerates diet , can likely dc tomorrow
--- NOTE | 2018-04-12 21:25 | PN ---
Physical Exam: SUBJECTIVE: No events overnight. No complaints today. NPO remains for EGD today OBJECTIVE: Vital Signs Period Temp Pulse Resp BP Sys/Shanks Pulse Ox Last 24 Hr 97.7 F-98.9 F 62-75 16-22 131-157/60-79 97-100 GENERAL: NAD, awake, alert, and fully oriented HEENT: EOMI, DANAY, sclera anicteric, no nystagmus noted, moist mucosa LUNGS: CTA bilaterally. No wheezes, and no crackles. No accessory muscle use. HEART: RRR, normal S1 and S2 without murmur ABDOMEN: Soft, nondistended, hypoactive BS, nontender, no guarding, no hepatomegaly, no masses. EXTREMITIES: 2+ DP pulses, warm, well-perfused. No peripheral edema. No calf tenderness SKIN: Warm, dry and peeling skin on LLExt (due to sunburn), no rashes or lesions noted Laboratory Results - last 24 hr 04/12/18 12:30 Potassium 3.9 Phosphorus 2.9 Magnesium 2.1 Active Medications Generic Name Dose Route Start Last Admin Trade Name Freq PRN Reason Stop Dose Admin Heparin Sodium (Porcine) 5,000 unit 04/11/18 06:00 04/12/18 06:21 Heparin - SQ 5,000 unit TID FLAKO Administration Sodium Chloride 1,000 mls @ 75 mls/hr 04/11/18 14:00 04/12/18 13:36 Normal Saline - IV 75 mls/hr ASDIR FLAKO Administration Pantoprazole Sodium 40 mg 04/12/18 22:00 04/12/18 21:00 Protonix Iv IVPUSH 40 mg BID FLAKO Administration Sucralfate 1 gm 04/12/18 16:30 04/12/18 20:59 Carafate Oral Suspension - PO 1 gm ACHS FLAKO Administration ASSESSMENT/PLAN: 87yo M with hx GERD, PHN, HLD, and diet controlled DM who presents with recurrent PO intolerance with N and nonbloody/bilious Vomiting 1) Gastric outlet obstruction 2/2Gastroduodenitis --Viral most likely, but can't r/o MALToma or other inflammatory processes --EGD today --keep npo --IVF for rehydration purposes 2) DM --Reportedly diet controlled --Will check A1c 6.5 --Medicine team previously spoke to him and and they would like to address this as an outpatient FEN: Fluids: NS@75cc/hr for hydration Electrolyte abnormalities: order K, Mg, Phos due to npo Nutrition: NPO for bowel rest PPX: DVT - Heparin SQ GI - Protonix 40mg IVP qdaily Dispo: d/c pending; PO challenge later in day Case discussed with Dr. Al Peacock, DO - IM PGY-1 Visit type - Emergency Visit Emergency Visit: No - New Patient This patient is new to me today: No - Critical Care Critical Care patient: No
[2018-04-13] MEDS: SUCRALFATE 1 GM/10 ML UNIT DOSE CUPS PO SCH ×2 (06:03→11:22)
[2018-04-13] MEDS: HEPARIN NA (PORCINE) 5,000 UNITS/ML 1ML VIAL SQ SCH ×2 (06:03→14:06)
[2018-04-13 08:36] VITALS: TEMP 97.8
[2018-04-13] MEDS: PANTOPRAZOLE SODIUM 40 MG VIAL IVPUSH SCH (09:30)
--- NOTE | 2018-04-13 14:12 | PN ---
Teaching Attending Note Name of Resident: Colten Peacock ATTENDING PHYSICIAN STATEMENT I saw and evaluated the patient. I reviewed the resident's note and discussed the case with the resident. I agree with the resident's findings and plan as documented. SUBJECTIVE: No fever or chills, no ABd pain, no n/V . tolerated solid food OBJECTIVE: NAD, MMM CV: RRR, 2/6 DM at LUSB Lungs: CATB Abd: soft, NT, ND , NL BS EXt : no edema or erythema Assessment/Plan: Pleasant 87 y/o man with h/o GERD, pre-DM , mild dementia , and hyperlipidemia who presented with N/V .He was found to have gastric outlet obstruction 1- Gastric outlet obstruction : EGd with severe inflammation of duodenum and stomach and esophagitis Bx taken - tolerated diet - carafate and po PPI BID - will need repeat EGD in 1 week . this was scheduled 2- New diagnosis of DM : A1c 6.5 - prefers to d/w PCP. nv home
--- NOTE | 2018-04-13 14:24 | DS ---
Physical Exam: SUBJECTIVE: Patient seen and examined OBJECTIVE: Vital Signs Period Temp Pulse Resp BP Sys/Shanks Pulse Ox Last 24 Hr 97.8 F-99 F 57-72 20-20 132-147/68-74 95-97 PHYSICAL EXAM GENERAL: The patient is awake, alert, and fully oriented, in no acute distress. HEAD: Normal with no signs of trauma. EYES: PERRL, extraocular movements intact, sclera anicteric, conjunctiva clear. ENT: Ears normal, nares patent, oropharynx clear without exudates, moist mucous membranes. NECK: Trachea midline, full range of motion, supple. LUNGS: Breath sounds equal, clear to auscultation bilaterally, no wheezes, no crackles, no accessory muscle use. HEART: Regular rate and rhythm, S1, S2 without murmur, rub or gallop. ABDOMEN: Soft, nontender, nondistended, normoactive bowel sounds, no guarding, no rebound, no hepatosplenomegaly, no masses. EXTREMITIES: 2+ pulses, warm, well-perfused, no edema. NEUROLOGICAL: Cranial nerves II through XII grossly intact. Normal speech, gait not observed. PSYCH: Normal mood, normal affect. SKIN: Warm, dry, normal turgor, no rashes or lesions noted. LABS HOSPITAL COURSE: Date of Admission:04/10/18 Date of Discharge: 04/13/18 Discharge Summary Reason For Visit: GASTRODUODENITIS, PROCTITIS Current Active Problems Gastric outlet obstruction (Acute) Gastroduodenitis (Acute) Nausea and vomiting (Acute) Condition: Improved - Instructions Diet, Activity, Other Instructions: You were hospitalized due to your nausea and vomiting. We performed a CAT scan which showed some inflammation of your stomach and intestine. The scope that Dr. Vega had to do found that the end of your stomach is very narrow which may have lead to your vomiting. 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 Vega says it is okay to resume as this can cause irritation to your stomach lining as well FOLLOW-UP: It is EXTREMELY important to follow-up with Dr. Vega. You will have to have ANOTHER scope to assess your stomach in 1 week --It has been scheduled for 04/23/18 and you will receive a phone call about times and instructions via your home phone Please follow-up with your general medical doctor as well to discuss what has happened during your hospital stay You do have diabetes Now . please follow with your PCP to determine medications VS diet/exercise Referrals: Nicholas Greenberg I [Primary Care Provider] - Sharad Vega MD [Staff Physician] - 1 Week Disposition: HOME - Home Medications Comprehensive Discharge Medication List: Ambulatory Orders Simvastatin [Zocor -] 40 mg PO HS 09/27/16 Pantoprazole Sodium [Protonix] 40 mg PO BID #60 tablet. 04/13/18 Sucralfate Oral Suspension [Carafate Oral Suspension -] 1 gm PO ACHS 10 Days # 400 ml 04/13/18
[2018-04-13 15:07] VITALS: BP 131/66; PULSE 67
--- NOTE | 2018-04-13 17:35 | PATH ---
Surgical Pathology Report Patient Name: ANA HICKEY [facility]. Rec. #: [id number] /Age/Gender: 1930 (Age: 87) / M Account: [id number] Location: [address] [place] [address] Taken: 04/12/2018 Received: 04/12/2018 Reported: 04/13/2018 Physicians: Sharad Vega M.D. Specimen(s) Received A: BX DUODENUM B: BX ANTRUM C: BX DISTAL ESOPHAGUS Clinical History Nausea/vomiting, hiccups Postoperative diagnosis: Gastritis, duodenitis, esophagitis Final Diagnosis A. 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 B. ANTRUM, BIOPSY: GASTRIC MUCOSA WITH MODERATE CHRONIC GASTRITIS. IMMUNOSTAIN IS NEGATIVE FOR H. PYLORI ORGANISMS. C. DISTAL ESOPHAGUS, BIOPSY: GASTROESOPHAGEAL JUNCTIONAL MUCOSA WITH ACUTE AND CHRONIC INFLAMMATION. SEPARATE ACUTE INFLAMMATORY EXUDATE. NEGATIVE FOR INTESTINAL METAPLASIA. PAS STAIN FAILED TO REVEAL FUNGAL HYPHAE. Electronically Signed Julieta Lynne M.D. Gross Description A. Received in formalin, labeled "biopsy duodenum" are 2 brothers, irregular portions of soft tissue measuring 0.1 and 0.2 cm. in greatest dimension. The specimens are submitted in toto in one cassette. B. Received in formalin, labeled "biopsy antrum" are 2 brothers, irregular portions of soft tissue averaging 0.3 cm. in greatest dimension. The specimens are submitted in toto in one cassette. C. Received in formalin, labeled "biopsy distal esophagus" are 4 brothers, irregular portions of soft tissue ranging from 0.1-0.3 cm. in greatest dimension. The specimens are submitted in toto in one cassette. /04/12/2018 saudi04/12/2018
== END 2018-04-13 15:23 | disposition home or self-care (01) ==
LOC: JER 12:25 → JERBED 21:50 → INTOOBSV 21:50 → J6S 04-11 01:18
PROVIDERS: ADMIT Internal Medicine; ATTEND Internal Medicine
PROC: 0DB98ZX Excision of Duodenum, Via Natural or Artificial Opening Endoscopic, Diagnostic (ICD-10-PCS; principal; 2018-04-10)
PROC: 0DB68ZX Excision of Stomach, Via Natural or Artificial Opening Endoscopic, Diagnostic (ICD-10-PCS; 2018-04-10)
PROC: 0DB58ZX Excision of Esophagus, Via Natural or Artificial Opening Endoscopic, Diagnostic (ICD-10-PCS; 2018-04-10)
PROC: 3E033GC Introduction of Other Therapeutic Substance into Peripheral Vein, Percutaneous Approach (ICD-10-PCS; 2018-04-10)
PROC: 3E03329 Introduction of Other Anti-infective into Peripheral Vein, Percutaneous Approach (ICD-10-PCS; 2018-04-10)
PROC: 3E0337Z Introduction of Electrolytic and Water Balance Substance into Peripheral Vein, Percutaneous Approach (ICD-10-PCS; 2018-04-10)
PROC: 3E013GC Introduction of Other Therapeutic Substance into Subcutaneous Tissue, Percutaneous Approach (ICD-10-PCS; 2018-04-10)
DX: K29.91 Gastroduodenitis, unspecified, with bleeding (principal); K44.9 Diaphragmatic hernia without obstruction or gangrene; K31.1 Adult hypertrophic pyloric stenosis; K20.9 Esophagitis, unspecified; K29.50 Unspecified chronic gastritis without bleeding; E78.5 Hyperlipidemia, unspecified; E11.9 Type 2 diabetes mellitus without complications; K29.60 Other gastritis without bleeding; R23.3 Spontaneous ecchymoses; Z88.0 Allergy status to penicillin
CPT/HCPCS: 36415; 74177-TC; 76705-TC; 80048; 80053; 81003; 81015; 82962; 83036; 83690; 83735; 84100; 84132; 85025; 85027; 85610; 85730; 86850; 86900; 86901; 87086; 88305-TC; 93005; 93010; 96365; 96367; 96368; 96372; 96375; 96376; 99284-25; G0378; J0131; J1644; J7030

== ENCOUNTER 2018-05-03 07:25 | Observation (INO) | payer OTHER, BC ==
[2018-05-03 07:57] VITALS: BMI 22.7
--- NOTE | 2018-05-03 08:01 | PDOC ---
History of Present Illness - General Chief Complaint: Syncope/Near Syncope Stated Complaint: SYNCOPE - History of Present Illness Initial Comments: 05/03/18 08:18 87 year old male with a hx of NIDDM, GERD, HLD, and gastroduodenitis presents s/ p syncopal episode in his home. Patient's states that he was getting out of bed this morning, felt lightheaded, lost consciousness and fell on his side and back, hitting his head on the carpet. Patient denies any pain. Patient's reports that the patient was preparing for colonoscopy last night for today with Dr. Vega, drinking the prep with gatorade and stopped after midnight , with no further PO intake. Denies history of syncopal episodes. Denies chest pain, SOB, nausea, vomiting, diarrhea, fevers, chills. Reports last cardiac workup was many years ago with a negative stress test. Allergies: penicillin Surgeries: knee replacement Smoke: none Alcohol: social, none last night Drugs: none PCP: Dr. Greenberg Past History - Past Medical History Allergies/Adverse Reactions: Allergies Allergy/AdvReac Type Severity Reaction Status Date / Time Penicillins Allergy Intermediate Rash Verified 05/03/18 07:57 Home Medications: Ambulatory Orders Simvastatin [Zocor -] 40 mg PO HS 09/27/16 Pantoprazole Sodium [Protonix] 40 mg PO BID #60 tablet. 04/13/18 Sucralfate [Carafate -] 1 gm PO ACHS #40 tablet 04/13/18 COPD: No Diabetes: Yes (no meds) Hypercholesterolemia: Yes - Suicide/Smoking/Psychosocial Hx Smoking History: Never smoked Have you smoked in the past 12 months: No Hx Alcohol Use: No Drug/Substance Use Hx: No Substance Use Type: None Review of Systems - Review of Systems Able to Perform ROS?: Yes Is the patient limited Mongolian proficient: Yes Constitutional: No: Chills, Fever HEENTM: No: Difficulty Swallowing Respiratory: No: Cough, Shortness of Breath Cardiac (ROS): Yes: Syncope. No: Chest Pain, Irregular Heart Rate, Chest Tightness ABD/GI: No: Diarrhea, Nausea Musculoskeletal: No: Muscle Weakness Integumentary: No: Rash Neurological: No: Headache *Physical Exam - Vital Signs Last Vital Signs Temp Pulse Resp BP Pulse Ox 98.3 F 72 16 123/71 0 L 05/03/18 07:25 05/03/18 07:25 05/03/18 07:25 05/03/18 07:25 05/03/18 07:25 - Physical Exam Comments: 05/03/18 08:27 GENERAL: A&Ox3, no acute distress EYES: PERRLA, EOMI ENT: Moist mucus membranes NECK: No JVD LUNGS: CTA, no wheezes HEART: RRR, no murmurs ABDOMEN: Soft, nontender, BS present MUSCULOSKELETAL: No CVA Tenderness EXTREMITIES: 2+ pulses, no edema. NEUROLOGICAL: Cranial nerves II-XII intact. ED Treatment Course - LABORATORY CBC & Chemistry Diagram: 05/03/18 08:45 05/03/18 08:45 Medical Decision Making - Medical Decision Making 05/03/18 08:27 87 year old male hx NIDDM, GERD, HLD, presents s/p syncopal episode -cbc, cmp, ekg, UA, CT head no contrast -IV fluids 1000cc bolus -d/w Dr. Younger *DC/Admit/Observation/Transfer Diagnosis at time of Disposition: Syncope - Discharge Dispostion Condition at time of disposition: Stable Decision to Admit order: Yes - Referrals Referrals: Nicholas Greenberg I [Primary Care Provider] - - Patient Instructions - Post Discharge Activity
[2018-05-03] MEDS ORDERED: SODIUM CHLORIDE 1,000 ML IV STA (08:29)
--- NOTE | 2018-05-03 08:29 | PDOC ---
Attending Attestation - Resident Resident Name: Colten Gomes - ED Attending Attestation I have performed the following: I have examined & evaluated the patient, The case was reviewed & discussed with the resident, I agree w/resident's findings & plan, Exceptions are as noted - HPI HPI: 05/03/18 08:24 87y M hx of gerd, hl, newly dx dm, presents s/p syncopal episode, felt lightheaded this morning when going to his appointment for a colonscopy/ endoscpy. +LOC, no head injury (was supported by on the way down) unable to remember anything about the fall. Per he was complaining of feeling lightheaded since getting up this morning. notes that he hasnt really drank much last night due to prepping for colonscopy. pt denies any associated cp, sob , n/v, feve/rchills, cough, abd pain, bpr, palpitatations, numbness/tweakness/ tingling, vision changes, neck pain, back pain. On exam HEAD: atraumatic, CARDIAC: no murmers, rrr. pulm: CTA b/l abd: soft, nontender back: no focal bony tenderness in cervicl/thoracic/lumbar spine suspect dehydration due to prep, but consider arrithmia, metabolic derangement will ck labs fluilds for hydration will ck orthostatics - Physicial Exam PE: 05/07/18 07:42 see above - Medical Decision Making 05/03/18 10:52 labs reviewed labs unremarkable will obs for syncope up Heart Score/ECG Review - ECG Impressions Comment:: 05/03/18 10:53 Twelve-lead EKG was performed and reviewed by me. There is normal sinus rhythm with a normal rate. Rate of [address] changs suggestive of acute ischemia
[2018-05-03 09:39] LABS: BASO % 0.4 % (0-2.0); EOS % 0.3 % (0-4.5); HEMATOCRIT 41.5 % (35.4-49); HEMOGLOBIN 13.8 GM/dL (11.7-16.9); LYMPH % 9.7 % (8-40); MCH 27.8 pg (25.7-33.7); MCHC 33.2 g/dl (32.0-35.9); MEAN CELL VOLUME 83.8 fl (80-96); MEAN PLT VOLUME 8.8 fl (7.5-11.1); MONO % 5.5 % (3.8-10.2); NEUT % 84.1 % (42.8-82.8); PLATELET COUNT 180 K/MM3 (134-434); RBC 4.95 M/mm3 (4.00-5.60); RDW 14.1 % (11.9-15.9); WHITE BLOOD COUNT 9.3 K/mm3 (4.0-10.0)
[2018-05-03 09:41] LABS: URINE APPEARANCE SLCLOUDY; URINE BILIRUBIN NEGATIVE (<2.0 mg/dL); URINE COLOR AMBER; URINE GLUCOSE (UA) 1+ (NEGATIVE); URINE KETONE 1+ (NEGATIVE); URINE LEUK ESTERASE NEGATIVE (NEGATIVE); URINE NITRITE NEGATIVE (NEGATIVE); URINE UROBILINOGEN NEGATIVE mg/dL (0.2-1.0)
[2018-05-03 09:43] LABS: URINE PROTEIN 1+ (NEGATIVE)
[2018-05-03 09:46] LABS: EPI CELLS RARE /HPF (FEW); URINE HYALINE CAST 30 /lpf; URINE MUCUS MANY
[2018-05-03 10:12] LABS: ALBUMIN 3.3 g/dl (3.4-5.0); ALK PHOS 69 U/L (45-117); ANION GAP 7 (8-16); BILIRUBIN,TOTAL 0.9 mg/dL (0.2-1.0); BLOOD UREA NITROGEN 9 mg/dL (7-18); CALCIUM 8.4 mg/dL (8.5-10.1); CHLORIDE 106 mmol/L (98-107); CO2 27 mmol/L (21-32); CREATININE 0.9 mg/dL (0.7-1.3); GLUCOSE,RANDOM 133 mg/dL (74-106); SGOT/AST 21 U/L (15-37); SGPT/ALT 21 U/L (12-78); SODIUM 140 mmol/L (136-145); TOT PROT 6.3 g/dl (6.4-8.2)
--- NOTE | 2018-05-03 11:37 | CON.GI ---
Consult - Alcohol/Substance Use Hx Alcohol Use: No - Smoking History Smoking history: Never smoked Have you smoked in the past 12 months: No Home Medications - Allergies Allergies/Adverse Reactions: Allergies Allergy/AdvReac Type Severity Reaction Status Date / Time Penicillins Allergy Intermediate Rash Verified 05/03/18 07:57 - Home Medications Home Medications: Ambulatory Orders Simvastatin [Zocor -] 40 mg PO HS 09/27/16 Pantoprazole Sodium [Protonix] 40 mg PO BID #60 tablet. 04/13/18 Sucralfate [Carafate -] 1 gm PO ACHS #40 tablet 04/13/18 Physical Exam-GI Vital Signs: Vital Signs Temperature 98.3 F 05/03/18 07:25 Pulse Rate 72 05/03/18 07:25 Respiratory Rate 16 05/03/18 07:25 Blood Pressure 123/71 05/03/18 07:25 O2 Sat by Pulse Oximetry (%) 0 L 05/03/18 07:25 Labs: CBC, BMP 05/03/18 08:45 05/03/18 08:45
[2018-05-03] MEDS ORDERED: PANTOPRAZOLE 40 MG TABLET (FP) ONE (15:39)
--- NOTE | 2018-05-03 16:49 | CON.CARD ---
Consult Consult Specialty:: Cardiology Referred by:: Emergency Medicine Reason for Consultation:: Syncope - History of Present Illness Chief Complaint: Syncope History of Present Illness: 87y M hx of gastric outlet obstruction with recent EGd with severe inflammation of duodenum and stomach and esophagitis planned for repeat EGD, hyperlipidemia, newly dx dm, mild dementia presented post syncopal episode, reported prodromal lightheaded this morning when going to his appointment for EGD, no head injury (was supported by on the way down) unable to remember anything about the fall. Per he was complaining of feeling lightheaded since getting up this morning. notes that he hasnt really drank much last night due to prepping for EGD. pt denies any associated cp, sob, n/v, fever/rchills, cough, abd pain, bpr , palpitatations, numbness/tweakness/tingling, vision changes, neck pain, back pain, orthopnea, PND or LE edema. - History Source History Provided By: Medical Record Limitations to Obtaining History: Clinical Condition - Alcohol/Substance Use Hx Alcohol Use: No - Smoking History Smoking history: Never smoked Have you smoked in the past 12 months: No Home Medications - Allergies Allergies/Adverse Reactions: Allergies Allergy/AdvReac Type Severity Reaction Status Date / Time Penicillins Allergy Intermediate Rash Verified 05/03/18 07:57 - Home Medications Home Medications: Ambulatory Orders Simvastatin [Zocor -] 40 mg PO HS 09/27/16 Review of Systems - Review of Systems Neurological: reports: Dizziness, Syncope Vital Signs: Vital Signs Temperature 98.2 F 05/03/18 16:35 Pulse Rate 84 05/03/18 16:35 Respiratory Rate 14 05/03/18 16:35 Blood Pressure 152/74 05/03/18 16:35 O2 Sat by Pulse Oximetry (%) 97 05/03/18 15:07 Constitutional: Yes: No Distress, Calm Neck: Yes: Supple Respiratory: Yes: Regular, CTA Bilaterally Gastrointestinal: Yes: Normal Bowel Sounds, Soft Cardiovascular: Yes: Regular Rate and Rhythm JVD: No Carotid Bruit: No Heart Sounds: Yes: S1, S2 Murmur: Yes: Systolic Murmur, Grade 1 Edema: No - Other Data Labs, Other Data: CBC, BMP 05/03/18 08:45 05/03/18 08:45 NSR @ 73 septal infarct Problem List - Problems (1) Syncope Code(s): R55 - SYNCOPE AND COLLAPSE Qualifiers: Syncope type: vasovagal syncope Qualified Code(s): R55 - Syncope and collapse (2) Gastric outlet obstruction Code(s): K31.1 - ADULT HYPERTROPHIC PYLORIC STENOSIS (3) Gastroduodenitis Code(s): K29.90 - GASTRODUODENITIS, UNSPECIFIED, WITHOUT BLEEDING (4) Diet-controlled diabetes mellitus Code(s): E11.9 - TYPE 2 DIABETES MELLITUS WITHOUT COMPLICATIONS (5) HLD (hyperlipidemia) Code(s): E78.5 - HYPERLIPIDEMIA, UNSPECIFIED Qualifiers: Hyperlipidemia type: pure hypercholesterolemia Qualified Code(s): E78.00 - Pure hypercholesterolemia, unspecified; E78.0 - Pure hypercholesterolemia Assessment/Plan 1. Syncope referable to hypovolemia pre-surveillance EGD 2. H/o gastric outlet obstruction with EGD with severe inflammation of duodenum and stomach and esophagitis 3. NIDDM 4. HLD P:1. Post IVF resuscitation, tolerating clear liquids pre-EGD 2. Telemetry to exclude sustained arrhythmia 3. Carafate and PPI as tolerated, continue statin 4. Thank you for consultative opportunity
--- NOTE | 2018-05-03 22:28 | HP ---
Admitting History and Physical - Primary Care Physician PCP: Sekou Younger - Admission Chief Complaint: syncope History of Present Illness: 87y M hx of gastric outlet obstruction with recent EGd with severe inflammation of duodenum and stomach and esophagitis planned for repeat EGD, hyperlipidemia, newly dx dm, mild dementia presented post syncopal episode, reported prodromal lightheaded this morning when going to his appointment for EGD, no head injury (was supported by on the way down) unable to remember anything about the fall. Per he was complaining of feeling lightheaded since getting up this morning. notes that he hasnt really drank much last night due to prepping for EGD. pt denies any associated cp, sob, n/v, fever/rchills, cough, abd pain, bpr , palpitatations, numbness/tweakness/tingling, vision changes, neck pain, back pain, orthopnea, PND or LE edema. - Past Medical History Cardiovascular: Yes: Hyperlipdemia Endocrine: Yes: Diabetes Mellitus - Smoking History Smoking history: Never smoked Have you smoked in the past 12 months: No - Alcohol/Substance Use Hx Alcohol Use: No Home Medications - Allergies Allergies/Adverse Reactions: Allergies Allergy/AdvReac Type Severity Reaction Status Date / Time Penicillins Allergy Intermediate Rash Verified 05/03/18 07:57 - Home Medications Home Medications: Ambulatory Orders Simvastatin [Zocor -] 40 mg PO HS 09/27/16 Review of Systems - Review of Systems Constitutional: reports: Weakness Physical Examination Vital Signs: Vital Signs Temperature 98.7 F 05/03/18 21:02 Pulse Rate 92 H 05/03/18 21:02 Respiratory Rate 18 05/03/18 21:02 Blood Pressure 133/74 05/03/18 21:02 O2 Sat by Pulse Oximetry (%) 97 05/03/18 21:00 Constitutional: Yes: No Distress HENT: Yes: Atraumatic Neck: Yes: Supple Cardiovascular: Yes: Regular Rate and Rhythm Respiratory: Yes: CTA Bilaterally Gastrointestinal: Yes: Normal Bowel Sounds Extremities: Yes: WNL Edema: No Peripheral Pulses WNL: Yes Neurological: Yes: Alert, Oriented Labs: CBC, BMP 05/03/18 08:45 05/03/18 08:45 Imaging - Results Cat Scan: Report Reviewed Problem List - Problems (1) Syncope Assessment/Plan: tele monitoring fu cardiac enzymes cardiology consult Code(s): R55 - SYNCOPE AND COLLAPSE Qualifiers: Syncope type: vasovagal syncope Qualified Code(s): R55 - Syncope and collapse (2) GERD (gastroesophageal reflux disease) Assessment/Plan: will do protonix Code(s): K21.9 - GASTRO-ESOPHAGEAL REFLUX DISEASE WITHOUT ESOPHAGITIS (3) HLD (hyperlipidemia) Assessment/Plan: on meds Code(s): E78.5 - HYPERLIPIDEMIA, UNSPECIFIED Qualifiers: Hyperlipidemia type: pure hypercholesterolemia Qualified Code(s): E78.00 - Pure hypercholesterolemia, unspecified; E78.0 - Pure hypercholesterolemia Assessment/Plan Laboratory Results - last 24 hr 05/03/18 05/03/18 05/03/18 08:45 08:45 08:45 WBC 9.3 RBC 4.95 Hgb 13.8 Hct 41.5 MCV 83.8 MCH 27.8 MCHC 33.2 RDW 14.1 Plt Count 180 MPV 8.8 Absolute Neuts (auto) 7.8 Neutrophils % 84.1 H Lymphocytes % 9.7 Monocytes % 5.5 Eosinophils % 0.3 D Basophils % 0.4 Nucleated RBC % 0 Sodium 140 Potassium 4.0 Chloride 106 Carbon Dioxide 27 Anion Gap 7 L BUN 9 Creatinine 0.9 Creat Clearance w eGFR > 60 Random Glucose 133 H D Calcium 8.4 L Total Bilirubin 0.9 AST 21 D ALT 21 D Alkaline Phosphatase 69 Total Protein 6.3 L Albumin 3.3 L Urine Color Mamta Urine Appearance Slcloudy Urine pH 5.0 D Ur Specific Hilliard 1.024 Urine Protein 1+ H Urine Glucose (UA) 1+ H Urine Ketones 1+ H Urine Blood Negative Urine Nitrite Negative Urine Bilirubin Negative Urine Urobilinogen Negative Ur Leukocyte Esterase Negative Urine WBC (Auto) 6 Urine RBC (Auto) 4 Ur Epithelial Cells Rare Hyaline Casts 30 Urine Mucus Many Active Medications Generic Name Dose Route Start Last Admin Trade Name Freq PRN Reason Stop Dose Admin Atorvastatin Calcium 20 mg 05/04/18 22:00 Lipitor - PO HS [facility]KO Pantoprazole Sodium 40 mg 05/04/18 10:00 05/04/18 10:22 Protonix Iv IVPUSH 40 mg DAILY FLAKO Administration
[2018-05-04] MEDS: PANTOPRAZOLE SODIUM 40 MG VIAL IVPUSH SCH (10:22)
--- NOTE | 2018-05-04 11:35 | PN ---
Progress Note (short form) - Note Progress Note: Chief Complaint: Events noted, noted reviewed, denies any chest pain or dyspnea , denies any dizziness or lightheadedness History of Present Illness: Seen and examined on telemetry. Events noted, noted reviewed, denies any chest pain or dyspnea, denies any dizziness or lightheadedness Medications: Current Medications Atorvastatin Calcium (Lipitor -) 20 mg PO HS [facility] Pantoprazole Sodium (Protonix Iv) 40 mg IVPUSH DAILY [facility] Last Admin: 05/04/18 10:22 Dose: 40 mg Review of Systems Constitutional: denies: Chills Cardiovascular: As noted above Respiratory: denies: Cough or Sputum Production Gastrointestinal: denies: Nausea, Vomiting, Diarrhea, Constipation or Abdominal Pain Musculoskeletal: denies: Joint Pain Neurological: denies: Dizziness or Headache Vital Signs: Last Vital Signs Temp Pulse Resp BP Pulse Ox 98.1 F 79 20 137/47 96 05/04/18 10:00 05/04/18 10:00 05/04/18 10:00 05/04/18 10:00 05/04/18 09:24 Intake & Output 05/01/18 05/02/18 05/03/18 05/04/18 23:59 23:59 23:59 23:59 Intake Total 580 300 Output Total 160 Balance 420 300 Weight 145 lb Constitutional: No Distress, Calm Neck: Supple Respiratory: CTA Bilaterally Cardiovascular: S1 S2 Regular Rate and Rhythm Grade 1/6 SM Gastrointestinal: Soft Benign Normal Bowel Sounds Ext: No Edema Labs: CBC, BMP 05/03/18 08:45 05/03/18 08:45 Hepatic Panel Total Bilirubin 0.9 mg/dL (0.2-1.0) 05/03/18 08:45 AST 21 U/L (15-37) D 05/03/18 08:45 ALT 21 U/L (12-78) D 05/03/18 08:45 Alkaline Phosphatase 69 U/L (45-117) 05/03/18 08:45 Albumin 3.3 g/dl (3.4-5.0) L 05/03/18 08:45 Assessment/Plan ASSESSMENT: 1. Syncope referable to hypovolemia, vaso-vagal syncope vs. orthostatic hypotension 2. Gastric outlet obstruction with EGD with severe inflammation of duodenum and stomach and esophagitis 3. NIDDM 4. Hypercholestrolemia PLAN: 1. Avoid volume depletion 2. Continue Lipitor 3. Can be D/C from the cardiovascular point of view and advised F/U in the office for further evaluation and management Manuel Sorenson MD
--- NOTE | 2018-05-04 16:00 | DS ---
Physical Examination Vital Signs: Vital Signs Temperature 98.3 F 05/04/18 14:00 Pulse Rate 75 05/04/18 14:00 Respiratory Rate 20 05/04/18 10:00 Blood Pressure 123/91 05/04/18 14:00 O2 Sat by Pulse Oximetry (%) 96 05/04/18 09:24 Labs: CBC, BMP 05/03/18 08:45 05/03/18 08:45 Discharge Summary Reason For Visit: SYNCOPE Current Active Problems Syncope (Acute) Condition: Stable - Instructions Referrals: Nicholas Greenberg I [Primary Care Provider] - Sekou Younger MD [Staff Physician] - - Home Medications Comprehensive Discharge Medication List: Ambulatory Orders Simvastatin [Zocor -] 40 mg PO HS 09/27/16 tn home
[2018-05-04] MEDS ORDERED: BISACODYL 5 MG TABLET.DR (FP) PO ONE (17:30)
[2018-05-04] MEDS ORDERED: PEG 3350/NA SULF BICARB CL/KCL 4000 ML SOLN.RECON PO ONE (18:00)
--- NOTE | 2018-05-04 20:59 | PN ---
Progress Note, Physician - Current Medication List Current Medications: Active Medications Atorvastatin Calcium (Lipitor -) 20 mg PO HS [facility] Pantoprazole Sodium (Protonix Iv) 40 mg IVPUSH DAILY [facility] Last Admin: 05/04/18 10:22 Dose: 40 mg - Objective Vital Signs: Vital Signs Temperature 98.5 F 05/04/18 17:00 Pulse Rate 82 05/04/18 17:00 Respiratory Rate 20 05/04/18 17:00 Blood Pressure 148/74 05/04/18 17:00 O2 Sat by Pulse Oximetry (%) 96 05/04/18 09:24 Constitutional: Yes: No Distress HENT: Yes: Atraumatic Neck: Yes: Supple Cardiovascular: Yes: Regular Rate and Rhythm Respiratory: Yes: CTA Bilaterally Gastrointestinal: Yes: Normal Bowel Sounds Extremities: Yes: WNL Neurological: Yes: Alert, Oriented Labs: CBC, BMP 05/03/18 08:45 05/03/18 08:45 Problem List - Problems (1) Syncope Assessment/Plan: doing well troponins negative Code(s): R55 - SYNCOPE AND COLLAPSE Qualifiers: Syncope type: vasovagal syncope Qualified Code(s): R55 - Syncope and collapse (2) GERD (gastroesophageal reflux disease) Assessment/Plan: on protonix for egd in am Code(s): K21.9 - GASTRO-ESOPHAGEAL REFLUX DISEASE WITHOUT ESOPHAGITIS (3) HLD (hyperlipidemia) Assessment/Plan: on meds Code(s): E78.5 - HYPERLIPIDEMIA, UNSPECIFIED Qualifiers: Hyperlipidemia type: pure hypercholesterolemia Qualified Code(s): E78.00 - Pure hypercholesterolemia, unspecified; E78.0 - Pure hypercholesterolemia
[2018-05-04] MEDS ORDERED: ATORVASTATIN CA 20 MG TABLET (FP) PO SCH (22:00)
[2018-05-04] MEDS ORDERED: PATIENT'S OWN MEDICATION (NON-FORMULARY) (Simvastatin 40 MG) PO SCH (22:00)
[2018-05-05] MEDS: PANTOPRAZOLE SODIUM 40 MG VIAL IVPUSH SCH (09:44)
--- NOTE | 2018-05-05 10:27 | PN ---
Progress Note, Physician History of Present Illness: Denies recurrent near or true syncope. No events on telemetry. - Current Medication List Current Medications: Active Medications Atorvastatin Calcium (Lipitor -) 20 mg PO HS [facility] Last Admin: 05/04/18 21:17 Dose: 20 mg Pantoprazole Sodium (Protonix Iv) 40 mg IVPUSH DAILY [facility] Last Admin: 05/05/18 09:44 Dose: 40 mg - Objective Vital Signs: Vital Signs Temperature 97.7 F 05/05/18 05:18 Pulse Rate 78 05/05/18 08:37 Respiratory Rate 18 05/05/18 08:37 Blood Pressure 143/72 05/05/18 08:37 O2 Sat by Pulse Oximetry (%) 100 05/04/18 21:00 Constitutional: Yes: No Distress, Calm, Thin Neck: Yes: Supple Cardiovascular: Yes: Regular Rate and Rhythm Respiratory: Yes: Regular, CTA Bilaterally Gastrointestinal: Yes: Soft, Hypoactive Bowel Sounds Edema: No Labs: CBC, BMP 05/03/18 08:45 05/03/18 08:45 - ....Imaging EKG: Report Reviewed (Tele: SR no events) Problem List - Problems (1) Syncope Code(s): R55 - SYNCOPE AND COLLAPSE Qualifiers: Syncope type: vasovagal syncope Qualified Code(s): R55 - Syncope and collapse (2) Gastric outlet obstruction Code(s): K31.1 - ADULT HYPERTROPHIC PYLORIC STENOSIS (3) Gastroduodenitis Code(s): K29.90 - GASTRODUODENITIS, UNSPECIFIED, WITHOUT BLEEDING (4) Diet-controlled diabetes mellitus Code(s): E11.9 - TYPE 2 DIABETES MELLITUS WITHOUT COMPLICATIONS (5) HLD (hyperlipidemia) Code(s): E78.5 - HYPERLIPIDEMIA, UNSPECIFIED Qualifiers: Hyperlipidemia type: pure hypercholesterolemia Qualified Code(s): E78.00 - Pure hypercholesterolemia, unspecified; E78.0 - Pure hypercholesterolemia Assessment/Plan 1. Syncope referable to hypovolemia pre-surveillance EGD 2. H/o gastric outlet obstruction with EGD with severe inflammation of duodenum and stomach and esophagitis 3. NIDDM 4. HLD P:1. Tolerating clear liquids pre-EGD, avoid volume depletion 2. Telemetry excluded sustained arrhythmia 3. Lipitor and PPI as tolerated 4. Await endoscopy as inpatient, d/c telemetry
[2018-05-05] MEDS ORDERED: PROPOFOL 20 ML ONE ×2 (12:27)
--- NOTE | 2018-05-05 13:05 | EKG ---
Test Reason : Blood Pressure : / mmHG Vent. 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
[2018-05-05] MEDS ORDERED: SIMETHICONE 40 MG/0.6 ML BOTTLE ONE (13:10)
--- NOTE | 2018-05-05 13:33 | PROC ---
Endoscopy Procedure Endoscopy procedure completed. Please see scanned procedure report. moderate gastritis, duodenitis and mild esophagitis were found. Biopsies taken. Mild aguila-diverticulosis, 2 small polyps and an internal hemorrhoids were found. Polyps were removed via cold forceps biopsies. Carafate and diet ordered. Continue PPI. Follow up as OP in 1-2 weeks.
[2018-05-05 14:04] VITALS: BP 140/55
[2018-05-05 14:06] VITALS: PULSE 72
[2018-05-05 14:35] VITALS: TEMP 98.1
[2018-05-05] MEDS ORDERED: SUCRALFATE 1 GM/10 ML UNIT DOSE CUPS PO SCH (16:30)
--- NOTE | 2018-05-05 18:39 | DS ---
Physical Examination Vital Signs: Vital Signs Temperature 98.1 F 05/05/18 14:00 Pulse Rate 72 05/05/18 14:05 Respiratory Rate 16 05/05/18 14:05 Blood Pressure 140/55 05/05/18 14:05 O2 Sat by Pulse Oximetry (%) 100 05/05/18 14:05 HENT: Yes: Atraumatic Neck: Yes: Supple Cardiovascular: Yes: Regular Rate and Rhythm Respiratory: Yes: CTA Bilaterally Gastrointestinal: Yes: Normal Bowel Sounds Extremities: Yes: WNL Neurological: Yes: Alert, Oriented Labs: CBC, BMP 05/03/18 08:45 05/03/18 08:45 Discharge Summary Reason For Visit: SYNCOPE Condition: Stable - Instructions Referrals: Nicholas Greenberg I [Primary Care Provider] - Sekou Younger MD [Staff Physician] - Disposition: HOME - Home Medications Comprehensive Discharge Medication List: Ambulatory Orders Simvastatin [Zocor -] 40 mg PO HS 09/27/16 dc home
--- NOTE | 2018-05-06 18:15 | PATH ---
Surgical Pathology Report Patient Name: [facility]NA [facility]. Rec. #: [id number] /Age/Gender: 1930 (Age: 87) / M Account: [id number] Location: 4 W TELEMETRY U Taken: 05/05/2018 Received: 05/05/2018 Reported: 05/06/2018 Physicians: Sharad Vega M.D. PHYSICIAN EMERGENCY DEPT Specimen(s) Received A: BX DUODENUM B: BX DUODENAL BULB C: BX ANTRUM AND STOMACH D: BX GE JUNCTION E: ASCENDING COLON POLYP F: BX CECUM POLYP Clinical History History of gastric ulcer, screening, anemia Postoperative diagnosis: Duodenitis, gastritis, diverticulosis, colon polyps, internal hemorrhoids Final Diagnosis A. DUODENUM, BIOPSY: DUODENAL MUCOSA WITH MILD CHRONIC INFLAMMATION. B. DUODENAL BULB, BIOPSY: DUODENAL MUCOSA WITH CHRONIC INFLAMMATION. C. ANTRUM AND STOMACH, BIOPSY: GASTRIC MUCOSA WITH ACTIVE CHRONIC GASTRITIS. IMMUNOSTAIN IS POSITIVE FOR H. PYLORI ORGANISMS. D. GE JUNCTION, BIOPSY: GLANDULAR MUCOSA WITH ACTIVE CHRONIC INFLAMMATION. NO INTESTINAL METAPLASIA. E. ASCENDING COLON POLYP, POLYPECTOMY: TUBULAR ADENOMA. F. CECAL POLYP, BIOPSY: COLONIC MUCOSA WITH MILD CHRONIC INFLAMMATION. Electronically Signed Julieta Lynne M.D. Gross Description A. Received in formalin, labeled "biopsy second portion of duodenum" are 2 brothers, irregular portions of soft tissue measuring 0.2 and 0.3 cm. in greatest dimension. The specimens are submitted in toto in one cassette. B. Received in formalin, labeled "biopsy duodenal bulb" is a brothers, irregular portion of soft tissue measuring 0.3 cm. in greatest dimension. The specimen is submitted in toto in one cassette. C. Received in formalin, labeled "biopsy stomach and antrum" are 5 brothers, irregular portions of soft tissue ranging from 0.3-0.4 cm. in greatest dimension. The specimens are submitted in toto in one cassette. D. Received in formalin, labeled "biopsy GE junction" is a brothers, irregular portion of soft tissue measuring 0.4 cm. in greatest dimension. The specimen is submitted in toto in one cassette. E. Received in formalin, labeled "biopsy polyp ascending" is a brothers, irregular portion of soft tissue measuring 0.3 cm. in greatest dimension. The specimen is submitted in toto in one cassette. F. Received in formalin, labeled "biopsy polyp cecum" is a brothers, irregular portion of soft tissue measuring 0.3 cm. in greatest dimension. The specimen is submitted in toto in one cassette. 05/05/2018 [facility]05/05/2018
== END 2018-05-05 15:55 | disposition home or self-care (01) ==
LOC: JER 07:25 → JERBED 10:52 → J4W 15:34
PROVIDERS: ADMIT Internal Medicine; ATTEND Internal Medicine
PROC: 0DBK8ZX Excision of Ascending Colon, Via Natural or Artificial Opening Endoscopic, Diagnostic (ICD-10-PCS; principal; 2018-05-03)
PROC: 0DBH8ZX Excision of Cecum, Via Natural or Artificial Opening Endoscopic, Diagnostic (ICD-10-PCS; 2018-05-03)
PROC: 0DB98ZX Excision of Duodenum, Via Natural or Artificial Opening Endoscopic, Diagnostic (ICD-10-PCS; 2018-05-03)
PROC: 0DB68ZX Excision of Stomach, Via Natural or Artificial Opening Endoscopic, Diagnostic (ICD-10-PCS; 2018-05-03)
PROC: 0DB48ZX Excision of Esophagogastric Junction, Via Natural or Artificial Opening Endoscopic, Diagnostic (ICD-10-PCS; 2018-05-03)
DX: R55 Syncope and collapse (principal); K31.1 Adult hypertrophic pyloric stenosis; K29.90 Gastroduodenitis, unspecified, without bleeding; E11.9 Type 2 diabetes mellitus without complications; E78.5 Hyperlipidemia, unspecified; K21.9 Gastro-esophageal reflux disease without esophagitis; K20.9 Esophagitis, unspecified; K29.80 Duodenitis without bleeding; K29.50 Unspecified chronic gastritis without bleeding; B96.89 Other specified bacterial agents as the cause of diseases classified elsewhere; D12.2 Benign neoplasm of ascending colon; D12.0 Benign neoplasm of cecum; Z12.11 Encounter for screening for malignant neoplasm of colon; K57.30 Diverticulosis of large intestine without perforation or abscess without bleeding; K64.8 Other hemorrhoids; Z13.810 Encounter for screening for upper gastrointestinal disorder; Z88.0 Allergy status to penicillin
CPT/HCPCS: 36415; 70450-TC; 80053; 81003; 81015; 82550; 84484; 85025; 88305-TC; 88342-TC; 93005; 93010; 99285-25; G0378; J7030

== ENCOUNTER 2019-04-07 06:14 | Emergency (ER) | payer OTHER, BC | END 2019-04-07 12:42 | disposition home or self-care (01) | LOC: JER 06:14 ==

== ENCOUNTER 2020-08-13 18:06 | Observation (INO) | payer OTHER, BC ==
--- NOTE | 2020-08-13 18:14 | PDOC ---
Rapid Medical Evaluation Time Seen by Provider: 08/13/20 18:13 Medical Evaluation: Allergies Allergy/AdvReac Type Severity Reaction Status Date / Time Penicillins Allergy Intermediate Rash Verified 08/13/20 18:13 08/13/20 18:13 I have performed a brief in-person examination on this patient. CC: epigastric burning while asleep PE: No focal findings Orders: cardiac w/u, pepcid, Maalox Patient will proceed to ED for further evaluation. Discharge Disposition - Diagnosis Epigastric burning sensation - Referrals - Patient Instructions - Post Discharge Activity
[2020-08-13] MEDS ORDERED: MAG HYDROX/AL HYDROX/SIMETH 30 ML UNIT-DOSE CUP PO ONE (18:15)
[2020-08-13] MEDS ORDERED: FAMOTIDINE 10 MG TABLET PO ONE (18:15)
[2020-08-13 18:17] VITALS: BMI 25.0
[2020-08-13] MEDS ORDERED: FAMOTIDINE 20 MG TABLET ONE (18:39)
[2020-08-13] MEDS ORDERED: MAG HYDROX/AL HYDROX/SIMETH 30 ML UNIT-DOSE CUP ONE (18:40)
[2020-08-13 19:21] LABS: BASO % 1.2 % (0-2.0); EOS % 4.1 % (0-4.5); HEMATOCRIT 44.3 % (35.4-49); HEMOGLOBIN 14.9 GM/dL (11.7-16.9); LYMPH % 39.7 % (8-40); MCH 29.2 pg (25.7-33.7); MCHC 33.7 g/dl (32.0-35.9); MEAN CELL VOLUME 86.6 fl (80-96); MEAN PLT VOLUME 9.2 fl (7.5-11.1); MONO % 8.2 % (3.8-10.2); NEUT % 46.8 % (42.8-82.8); PLATELET COUNT 154 K/MM3 (134-434); RBC 5.12 M/mm3 (4.00-5.60); RDW 14.4 % (11.9-15.9); WHITE BLOOD COUNT 4.9 K/mm3 (4.0-10.0)
[2020-08-13 19:28] LABS: INR 0.99 (0.83-1.09); PROTHROMBIN TIME (PATIENT) 11.7 SEC (9.7-13.0)
[2020-08-13 19:31] LABS: ACTIVATED PTT 29.5 SECONDS (25.2-36.5)
--- NOTE | 2020-08-13 19:50 | PDOC ---
History of Present Illness - General Chief Complaint: Pain Stated Complaint: SENT BY DR Daniels Seen by Provider: 08/13/20 18:13 - History of Present Illness Initial Comments: 08/13/20 19:54 89 yo female with pmh HLD, HTN presents to ED for epigastric pain that started last night. Pt explains he has been having constant episgastric pain since last night. He had a prior instance one week ago but went away on its own. Pt explains he called his PCP Dr. Younger who stated to come to ED for cardiac workup. Pt currently explains pain is 4/10 in pain. Pain was worse in the morning about 6/10. Pt explains burning pain that only comes at night but has been chronic throughout the day. Pt denies worsening pain with eating or exertion. Pt denies any radiation of pain. Pt denies shortness of breath, cough, emesis, nausea, diarrha, constipation, metallic taste, fevers, or change in urnation. Pt does drink but occasionally no more than 4 beers, last drink being only one beer last night. PMH: HTN, HLD, Meds: simvastatin, metroprolol Asn Allergies: penicillin-rash Psh: knee and hip Social: recreational drinker, denies drugs and alcohol PCP: Dr.R. Younger Cardio: Dr. Rosales Past History - Medical History Allergies/Adverse Reactions: Allergies Allergy/AdvReac Type Severity Reaction Status Date / Time Penicillins Allergy Intermediate Rash Verified 08/13/20 18:13 Home Medications: Ambulatory Orders Simvastatin [Zocor -] 40 mg PO HS 09/27/16 Aspirin 81 mg PO DAILY 04/07/19 Metoprolol Tartrate 25 mg PO DAILY 08/13/20 COPD: No Diabetes: Yes Hypercholesterolemia: Yes - Surgical History Orthopedic Surgery: Yes (R KNEE REPLACEMENT R ROTATOR CUFF) - Immunization History Immunization Up to Date: Yes - Psycho-Social/Smoking History Smoking History: Never smoked Have you smoked in the past 12 months: No - Substance Abuse Hx (Audit-C & DAST Scrn) How often the patient has a drink containing alcohol: Never Score: In Men: 4 or > Positive; In Women: 3 or > Positive: 0 Screen Result (Pos requires Nsg. Audit-10AR): Negative In the last yr the pt used illegal drug/Rx for NonMed reason: No Score: Yes response is considered Positive: 0 Screen Result (Positive result requires Nsg. DAST-10): Negative Review of Systems - Review of Systems Comments:: 08/13/20 19:59 GENERAL/CONSTITUTIONAL: No fever or chills. No weakness. HEAD, EYES, EARS, NOSE AND THROAT: No change in vision. No ear pain or discharge. No sore throat. CARDIOVASCULAR: Chest pain no SOB RESPIRATORY: No cough, wheezing, or hemoptysis. GASTROINTESTINAL: No nausea, vomiting, diarrhea or constipation. GENITOURINARY: No dysuria, frequency, or change in urination. MUSCULOSKELETAL: No joint or muscle swelling or pain. No neck or back pain. SKIN: No rash NEUROLOGIC: No headache, vertigo, loss of consciousness, or change in strength/sensation. ENDOCRINE: No increased thirst. No abnormal weight change HEMATOLOGIC/LYMPHATIC: No anemia, easy bleeding, or history of blood clots. ALLERGIC/IMMUNOLOGIC: No hives or skin allergy. *Physical Exam - Vital Signs Last Vital Signs Temp Pulse Resp BP Pulse Ox 98.1 F 73 18 137/78 98 08/13/20 18:13 08/13/20 18:13 08/13/20 18:13 08/13/20 18:13 08/13/20 18:13 - Physical Exam 08/13/20 20:28 GENERAL: Awake, alert, and fully oriented, in no acute distress HEAD: No signs of trauma, normocephalic, atraumatic EYES: PERRLA, EOMI, sclera anicteric, conjunctiva clear ENT: Auricles normal inspection, hearing grossly normal, nares patent, oropharynx clear without exudates. Moist mucosa NECK: Normal ROM, supple, no lymphadenopathy, JVD, or masses LUNGS: No distress, speaks full sentences, clear to auscultation bilaterally HEART: Regular rate and rhythm, normal S1 and S2, no murmurs, rubs or gallops, peripheral pulses normal and equal bilaterally. ABDOMEN: Soft, nontender, normoactive bowel sounds. No guarding, no rebound. No masses EXTREMITIES : Normal inspection, Normal range of motion, no edema. No clubbing or cyanosis. NEUROLOGICAL: Cranial nerves II through XII grossly intact. Normal speech, normal gait, no focal sensorimotor deficits SKIN: Warm, Dry, normal turgor, no rashes or lesions noted Heart Score/ECG Review - History History: Moderately suspicious - Electrocardiogram EKG: Normal - Age Age: >/= 65 - Risk Factors Risk Factors Heart Score: Yes Hx Hypercholesterolemia, Yes Hx Hypertension, Yes Hx Diabetes Based on the list above the patient has:: >/=3 risk factors or Hx atherosclerotic disease - Troponin Troponin: </= normal limit - Score Heart Score - Total: 5 - ECG Impressions Comment:: 08/13/20 20:31 Regular rate and rhythm Normal axis No ST changes or acute ischemic changes ED Treatment Course - LABORATORY CBC & Chemistry Diagram: 08/13/20 18:44 08/13/20 18:44 - ADDITIONAL ORDERS Additional order review: Laboratory Results 08/13/20 18:44 PT with INR 11.70 INR 0.99 PTT (Actin FS) 29.5 08/13/20 18:44 RBC 5.12 MCV 86.6 MCHC 33.7 RDW 14.4 MPV 9.2 Neutrophils % 46.8 Lymphocytes % 39.7 D Monocytes % 8.2 Eosinophils % 4.1 Basophils % 1.2 - Medications Given in the ED: ED Medications Discontinued Medications Generic Name Dose Route Start Last Admin Trade Name Freq PRN Reason Stop Dose Admin Al Hydroxide/Mg Hydroxide 30 ml 08/13/20 18:15 08/13/20 18:45 Mylanta Oral Suspension - PO 08/13/20 18:16 30 ml ONCE ONE Administration Famotidine 20 mg 08/13/20 18:15 08/13/20 18:45 Acid Antichecking Iron Worker PO 08/13/20 18:16 20 mg ONCE ONE Administration Medical Decision Making - Medical Decision Making 08/13/20 20:28 89 yo male with pmh of htn, dm, hld presenting to ED for episgastric tenderness that started last night. Pt got cardiac work up, lipase and maalox. Pt pain came back to 4. Pt ekg shows no ST elevation or signs of ischemia. Pt trop was negative. Pt will admitted to tele obs for acs under Dr. Younger. Pt hx, ed course was presented to Dr. Younger and she accepted admission. Discharge - Discharge Information Problems reviewed: Yes Clinical Impression/Diagnosis: Epigastric burning sensation, ACS (acute coronary syndrome) - Admission Yes - Follow up/Referral - Patient Discharge Instructions - Post Discharge Activity
[2020-08-13 20:13] LABS: ALBUMIN 3.5 g/dl (3.4-5.0); ALK PHOS 87 U/L (45-117); ANION GAP 3 MMOL/L (8-16); BILIRUBIN,TOTAL 0.3 mg/dL (0.2-1); CALCIUM 8.7 mg/dL (8.5-10.1); CHLORIDE 107 mmol/L (98-107); CO2 31 mmol/L (21-32); CREATININE 0.8 mg/dL (0.55-1.3); GLUCOSE,RANDOM 150 mg/dL (74-106); LIPASE 136 U/L (73-393); MAGNESIUM 2.1 mg/dL (1.8-2.4); POTASSIUM 4.1 mmol/L (3.5-5.1); SGOT/AST 23 U/L (15-37); SGPT/ALT 24 U/L (13-61); SODIUM 142 mmol/L (136-145); TOT PROT 6.8 g/dl (6.4-8.2)
[2020-08-13] MEDS ORDERED: ACETAMINOPHEN 1000 MG/100 ML VIAL (NON FORMULARY) IVPB ONE (20:26)
[2020-08-13] MEDS ORDERED: ASPIRIN 81 MG CHEWABLE TABLETS PO ONE (20:26)
[2020-08-13] MEDS ORDERED: ACETAMINOPHEN INJECTION 100 ML IVPB ONE (20:55)
[2020-08-13] MEDS ORDERED: ASPIRIN 81 MG CHEWABLE TABLETS ONE (20:55)
--- NOTE | 2020-08-13 21:30 | PDOC ---
Documentation entered by Irina Us SCRIBE, acting as scribe for Tsering Farah MD. Tsering Farah MD: This documentation has been prepared by the scribe, Irina Rodrigues SCRIBE, under my direction and personally reviewed by me in its entirety. I confirm that the documentation accurately reflects all work, treatment, procedures, and medical decision making performed by me. Attending Attestation - Resident Resident Name: Alonzo Mckee - ED Attending Attestation I have performed the following: I have examined & evaluated the patient, The case was reviewed & discussed with the resident, I agree w/resident's findings & plan, Exceptions are as noted - HPI HPI: 08/13/20 20:31 The patient is an 89 year old male with a significant PMH of HLD and HTN who presents to the ED for evaluation of 1 day if epigastric abdominal pain. Patient states he spoke with his PMD who encouraged him to come to the ED for cardiac workup. Patient denies n/v/d. - Physicial Exam PE: 08/13/20 20:53 General: well appearing Chest: CTAB, good air entry, no wheezes rales or rhonchi CVS: + s1 s2, RRR Abdomen: soft, nt, no rebound, no guarding, no masses - Medical Decision Making 08/13/20 20:54 89 yo M with intermittent epigastric pain, EKG NSR without ischemic changes however given age and comorbidities concern for possible ACS and patient spoke with his PMD today who encouraged patient to come to ED for cardiac workup. Also possible GERD or gastritis. Plan: -labs -cxr -asa -pepcid -maalox -admit tele obs This clinical encounter is taking place during a federal and state health care emergency attributable to the novel Alatorre Virus pandemic. The [employer] of the Department of Health and Human Services has declared, p ursuant to the Public Health Service Act 319F-3 (42 U.S.C. 247d-6d), that a covered persons activities related to medical countermeasures against COVID-19 will be immune from liability under Federal and State law. Discharge - Discharge Information Problems reviewed: Yes Clinical Impression/Diagnosis: Epigastric burning sensation, ACS (acute coronary syndrome) - Follow up/Referral - Patient Discharge Instructions - Post Discharge Activity
[2020-08-14] MEDS ORDERED: PANTOPRAZOLE 40 MG TABLET ONE (05:55)
[2020-08-14] MEDS ORDERED: PANTOPRAZOLE 40 MG TABLET PO SCH (07:00)
[2020-08-14] MEDS ORDERED: ASPIRIN 81 MG CHEWABLE TABLETS ONE (09:34)
[2020-08-14] MEDS ORDERED: METOPROLOL TARTRATE 25 MG TABLET (FP) ONE (09:34)
--- NOTE | 2020-08-14 09:54 | EKG ---
Test Reason : Blood Pressure : / mmHG Vent. Rate : 066 BPM Atrial Rate : 066 BPM P-R Int : 198 ms QRS Dur : 092 ms QT Int : 414 ms P-R-T Axes : 056 046 065 degrees QTc Int : 434 ms NORMAL SINUS RHYTHM SEPTAL INFARCT (CITED ON OR BEFORE 28-DEC-2016) ABNORMAL ECG WHEN COMPARED WITH ECG OF 07-APR-2019 07:02, NO SIGNIFICANT CHANGE WAS FOUND Confirmed by Andrea Snow MD ([id number]) on 08/14/2020 9:53:47 AM Referred By: Confirmed By:Andrea Snow MD
[2020-08-14] MEDS ORDERED: ASPIRIN 81 MG CHEWABLE TABLETS PO SCH (10:00)
[2020-08-14] MEDS ORDERED: METOPROLOL TARTRATE 25 MG TABLET (FP) PO SCH (10:00)
--- NOTE | 2020-08-14 11:39 | CON.CARD ---
Consult Consult Specialty:: Cardiology Referred by:: ER Reason for Consultation:: Cardiac evaluation - History of Present Illness Chief Complaint: Epigastric pain History of Present Illness: Patient is an 89 year old male with underlying history of exertional dyspnea/coronary artery disease, diastolic LV dysfunction with clinical 0 NYHA classification heart failure, NIDDM, hypercholesterolemia, carotid stenosis and history of syncope who presented with epigastric pain. He complained of burning pain in the epigastrium, nonradiating. He denies shortness of breath or palpitations. He denies fever or chills. He denies nausea, vomiting, diarrhea or abdominal pain. He denies headache or lightheadedness. He was in the in our of [facility] to see Dr. Manuel Sorenson on 04/21/20. ECG was unremarkable with no significant change from previous. Troponins are negative. - History Source History Provided By: Patient, Medical Record Limitations to Obtaining History: No Limitations - Past Medical History Cardio/Vascular: Yes: CAD, HTN, Hyperlipdemia Endocrine: Yes: Diabetes Mellitus - Past Surgical History Past Surgical History: Yes: Joint Replacement (Knee replacement, rotator cuff surgery) - Alcohol/Substance Use Hx Alcohol Use: No - Smoking History Smoking history: Never smoked Have you smoked in the past 12 months: No Home Medications - Allergies Allergies/Adverse Reactions: Allergies Allergy/AdvReac Type Severity Reaction Status Date / Time Penicillins Allergy Intermediate Rash Verified 08/13/20 18:13 - Home Medications Home Medications: Ambulatory Orders Simvastatin [Zocor -] 40 mg PO HS 09/27/16 Aspirin 81 mg PO DAILY 04/07/19 Metoprolol Tartrate 25 mg PO DAILY 08/13/20 Family Medical History Family Hx Diabetes: Mother, Father (Alzheimer (sibling)) Review of Systems - Review of Systems Constitutional: denies: Chills, Fever Cardiovascular: denies: Chest Pain, Palpitations, Shortness of Breath Respiratory: denies: Cough, Hemoptysis, Orthopnea, PND, SOB, SOB on Exertion, Wheezing Gastrointestinal: reports: Abdominal Pain. denies: Constipation, Diarrhea, Melena, Nausea, Rectal Bleeding, Vomiting Musculoskeletal: denies: Back Pain, Joint Pain Neurological: denies: Dizziness, Headache, Seizure, Syncope Vital Signs: Vital Signs Temperature 98.6 F 08/14/20 10:53 Pulse Rate 60 08/14/20 10:53 Respiratory Rate 22 H 08/14/20 06:09 Blood Pressure 123/78 08/14/20 10:53 O2 Sat by Pulse Oximetry (%) 100 08/14/20 10:53 Eyes: Yes: PERRL HENT: Yes: Atraumatic Neck: Yes: Supple Respiratory: Yes: CTA Bilaterally Gastrointestinal: Yes: Normal Bowel Sounds, Soft. No: Tenderness Cardiovascular: Yes: Regular Rate and Rhythm JVD: No Carotid Bruit: No PMI: Non-Displaced Heart Sounds: Yes: S1, S2. No: Gallop Murmur: Yes: Systolic Murmur, Grade 1 Edema: No - Other Data Labs, Other Data: CBC, BMP 08/13/20 18:44 08/13/20 18:44 INR, PTT INR 0.99 (0.83-1.09) 08/13/20 18:44 Troponin, BNP 08/13/20 08/14/20 18:44 02:24 Troponin I < 0.02 0.02 Laboratory Results - last 24 hr 08/13/20 08/13/20 08/13/20 18:44 18:44 18:44 WBC 4.9 RBC 5.12 Hgb 14.9 Hct 44.3 MCV 86.6 MCH 29.2 MCHC 33.7 RDW 14.4 Plt Count 154 MPV 9.2 Absolute Neuts (auto) 2.3 Neutrophils % 46.8 Lymphocytes % 39.7 D Monocytes % 8.2 Eosinophils % 4.1 Basophils % 1.2 Nucleated RBC % 0 PT with INR 11.70 INR 0.99 PTT (Actin FS) 29.5 Sodium 142 Potassium 4.1 Chloride 107 Carbon Dioxide 31 Anion Gap 3 L BUN 10.0 Creatinine 0.8 Est GFR (CKD-EPI)AfAm 93.09 Est GFR (CKD-EPI)NonAf 80.32 Random Glucose 150 H Calcium 8.7 Magnesium 2.1 Total Bilirubin 0.3 AST 23 ALT 24 Alkaline Phosphatase 87 Creatine Kinase 96 Troponin I < 0.02 Total Protein 6.8 Albumin 3.5 Lipase 136 Sinus rhythm with suggestion of septal infarct Imaging - Results Chest X-ray: Report Reviewed (Unremarkable) EKG: Report Reviewed Problem List - Problems (1) HTN (hypertension) Code(s): I10 - ESSENTIAL (PRIMARY) HYPERTENSION (2) Carotid stenosis Code(s): I65.29 - OCCLUSION AND STENOSIS OF UNSPECIFIED CAROTID ARTERY (3) Epigastric burning sensation Code(s): R10.13 - EPIGASTRIC PAIN (4) Syncope Code(s): R55 - SYNCOPE AND COLLAPSE Qualifiers: Syncope type: vasovagal syncope Qualified Code(s): R55 - Syncope and collapse (5) Diet-controlled diabetes mellitus Code(s): E11.9 - TYPE 2 DIABETES MELLITUS WITHOUT COMPLICATIONS (6) GERD (gastroesophageal reflux disease) Code(s): K21.9 - GASTRO-ESOPHAGEAL REFLUX DISEASE WITHOUT ESOPHAGITIS (7) HLD (hyperlipidemia) Code(s): E78.5 - HYPERLIPIDEMIA, UNSPECIFIED Qualifiers: Hyperlipidemia type: pure hypercholesterolemia Qualified Code(s): E78.00 - Pure hypercholesterolemia, unspecified; E78.0 - Pure hypercholesterolemia Assessment/Plan 1. Epigastric pain 2. History of CAD, angina pectoris 3. Diastolic dysfunction with clinical class 0 NYHA classification heart failure 4. HTN 5. Hypercholesterolemia 6. NIDDM 7. Carotid stenosis 8. History of syncope 9. ? GERD PLAN: 1. Continue Metoprolol ER 25 mg QD 2. Simvastatin 40 mg QHS 3. ASA 81 mg QD 4. Troponins negative. No further cardiac intervention needed at this time Consider further evaluation as outpatient. GI evaluation if not done recently Follow up with Dr. Manuel Sorenson, [facility], upon discharge May discharge cardiac standpoint Billy Salcedo MD[facility]
--- NOTE | 2020-08-14 12:02 | HP ---
Admitting History and Physical - Primary Care Physician PCP: Sekou Younger - Admission Chief Complaint: heart burn History of Present Illness: 89 y o , h/o htn,hld and acid reflux. c/o heart burn/acidity waking him up at night.tea or coffee not bothering him no radiation of pain to arm or up the jaw sent to ER to r/o AR, taking into consideration his medical history and age factor cardiology eval done - Past Medical History Cardiovascular: Yes: CAD, HTN, Hyperlipdemia Endocrine: Yes: Diabetes Mellitus - Past Surgical History Past Surgical History: Yes: Joint Replacement (Knee replacement, rotator cuff surgery) - Smoking History Smoking history: Never smoked Have you smoked in the past 12 months: No - Alcohol/Substance Use Hx Alcohol Use: No Home Medications - Allergies Allergies/Adverse Reactions: Allergies Allergy/AdvReac Type Severity Reaction Status Date / Time Penicillins Allergy Intermediate Rash Verified 08/13/20 18:13 - Home Medications Home Medications: Ambulatory Orders Simvastatin [Zocor -] 40 mg PO HS 09/27/16 Aspirin 81 mg PO DAILY 04/07/19 Metoprolol Tartrate 25 mg PO DAILY 08/13/20 Pantoprazole Sodium [Protonix -] 40 mg PO ACBK #30 tablet.ec 08/14/20 Family Medical History Family Hx Diabetes: Mother, Father (Alzheimer (sibling)) Physical Examination Vital Signs: Vital Signs Temperature 98.6 F 08/14/20 10:53 Pulse Rate 60 08/14/20 10:53 Respiratory Rate 22 H 08/14/20 06:09 Blood Pressure 123/78 08/14/20 10:53 O2 Sat by Pulse Oximetry (%) 100 08/14/20 10:53 HENT: Yes: Atraumatic Neck: Yes: Supple Cardiovascular: Yes: Regular Rate and Rhythm Respiratory: Yes: CTA Bilaterally Gastrointestinal: Yes: Normal Bowel Sounds Extremities: Yes: WNL Neurological: Yes: Alert, Oriented Labs: CBC, BMP 08/13/20 18:44 08/13/20 18:44 Imaging - Results X-ray: Report Reviewed EKG: Report Reviewed Problem List - Problems (1) Epigastric burning sensation Assessment/Plan: no ACS tele monitoring done 2 troponins negative feeling better Code(s): R10.13 - EPIGASTRIC PAIN (2) HTN (hypertension) Assessment/Plan: on meds continue Code(s): I10 - ESSENTIAL (PRIMARY) HYPERTENSION (3) GERD (gastroesophageal reflux disease) Assessment/Plan: on protonix...continue Code(s): K21.9 - GASTRO-ESOPHAGEAL REFLUX DISEASE WITHOUT ESOPHAGITIS (4) HLD (hyperlipidemia) Assessment/Plan: on meds Code(s): E78.5 - HYPERLIPIDEMIA, UNSPECIFIED Qualifiers: Hyperlipidemia type: pure hypercholesterolemia Qualified Code(s): E78.00 - Pure hypercholesterolemia, unspecified; E78.0 - Pure hypercholesterolemia Assessment/Plan Laboratory Tests 08/13/20 08/13/20 08/13/20 18:44 18:44 18:44 WBC 4.9 RBC 5.12 Hgb 14.9 Hct 44.3 MCV 86.6 MCH 29.2 MCHC 33.7 RDW 14.4 Plt Count 154 MPV 9.2 Absolute Neuts (auto) 2.3 Neutrophils % 46.8 Lymphocytes % 39.7 D Monocytes % 8.2 Eosinophils % 4.1 Basophils % 1.2 Nucleated RBC % 0 PT with INR 11.70 INR 0.99 PTT (Actin FS) 29.5 Sodium 142 Potassium 4.1 Chloride 107 Carbon Dioxide 31 Anion Gap 3 L BUN 10.0 Creatinine 0.8 Est GFR (CKD-EPI)AfAm 93.09 Est GFR (CKD-EPI)NonAf 80.32 Random Glucose 150 H Calcium 8.7 Magnesium 2.1 Total Bilirubin 0.3 AST 23 ALT 24 Alkaline Phosphatase 87 Creatine Kinase 96 Troponin I < 0.02 Total Protein 6.8 Albumin 3.5 Lipase 136 08/14/20 02:24 WBC RBC Hgb Hct MCV MCH MCHC RDW Plt Count MPV Absolute Neuts (auto) Neutrophils % Lymphocytes % Monocytes % Eosinophils % Basophils % Nucleated RBC % PT with INR INR PTT (Actin FS) Sodium Potassium Chloride Carbon Dioxide Anion Gap BUN Creatinine Est GFR (CKD-EPI)AfAm Est GFR (CKD-EPI)NonAf Random Glucose Calcium Magnesium Total Bilirubin AST ALT Alkaline Phosphatase Creatine Kinase 94 Troponin I 0.02 Total Protein Albumin Lipase Active Medications Generic Name Dose Route Start Last Admin Trade Name Freq PRN Reason Stop Dose Admin Aspirin 81 mg 08/14/20 10:00 08/14/20 09:35 Asa - PO 81 mg DAILY FLAKO Administration Atorvastatin Calcium 20 mg 08/14/20 22:00 Lipitor - PO HS FLAKO Metoprolol Tartrate 25 mg 08/14/20 10:00 08/14/20 09:35 Lopressor - PO 25 mg DAILY FLAKO Administration Pantoprazole Sodium 40 mg 08/14/20 07:00 08/14/20 06:09 Protonix - PO 40 mg ACBK FLAKO Administration
--- NOTE | 2020-08-14 12:05 | DS ---
Physical Examination Vital Signs: Vital Signs Temperature 98.6 F 08/14/20 10:53 Pulse Rate 60 08/14/20 10:53 Respiratory Rate 22 H 08/14/20 06:09 Blood Pressure 123/78 08/14/20 10:53 O2 Sat by Pulse Oximetry (%) 100 08/14/20 10:53 Labs: CBC, BMP 08/13/20 18:44 08/13/20 18:44 Discharge Summary Problems reviewed: Yes Reason For Visit: EPIGASTRIC BURNING SENSATION, ACUTE CORONARY Current Active Problems ACS (acute coronary syndrome) (Acute) Carotid stenosis (Acute) Epigastric burning sensation (Acute) HTN (hypertension) (Acute) - Instructions Diet, Activity, Other Instructions: see your pmd in 2-3 days Referrals: Sekou Younger MD [Primary Care Provider] - - Home Medications Comprehensive Discharge Medication List: Ambulatory Orders Simvastatin [Zocor -] 40 mg PO HS 09/27/16 Aspirin 81 mg PO DAILY 04/07/19 Metoprolol Tartrate 25 mg PO DAILY 08/13/20 Pantoprazole Sodium [Protonix -] 40 mg PO ACBK #30 tablet.ec 08/14/20 cleared by cardiology to be dc
[2020-08-14 13:19] VITALS: BP 125/75; PULSE 63; TEMP 98.1
[2020-08-14] MEDS ORDERED: ATORVASTATIN CA 20 MG TABLET (FP) PO SCH (22:00)
[2020-08-14] MEDS ORDERED: PATIENT'S OWN MEDICATION (NON-FORMULARY) (Simvastatin 40 MG) PO SCH (22:00)
== END 2020-08-14 14:00 | disposition home or self-care (01) ==
LOC: JER 18:06 → OBSVTOIN 20:27 → INTOOBSV 20:27 → JERBED 20:27
PROVIDERS: ADMIT Internal Medicine; ATTEND Internal Medicine
PROC: 3E033NZ Introduction of Analgesics, Hypnotics, Sedatives into Peripheral Vein, Percutaneous Approach (ICD-10-PCS; principal; 2020-08-13)
DX: I11.0 Hypertensive heart disease with heart failure (principal); I24.9 Acute ischemic heart disease, unspecified; I25.10 Atherosclerotic heart disease of native coronary artery without angina pectoris; R10.13 Epigastric pain; E11.9 Type 2 diabetes mellitus without complications; K21.9 Gastro-esophageal reflux disease without esophagitis; E78.5 Hyperlipidemia, unspecified; R06.00 Dyspnea, unspecified; I65.29 Occlusion and stenosis of unspecified carotid artery; Z96.659 Presence of unspecified artificial knee joint
CPT/HCPCS: 36415; 71046-TC-FY; 80053; 82550; 83690; 83735; 84484; 85025; 85610; 85730; 93005; 93010; 96374; 99285-25; C9803; G0378; J0131; U0003

== ENCOUNTER 2022-10-19 17:07 | Inpatient (IN) | payer OTHER, BC ==
[2022-10-19 17:24] VITALS: BMI 25.0
[2022-10-19 19:34] LABS: VENOUS BASE EXCESS 3.8 mmol/L (-2-2); VENOUS O2 SATURATION 25.8 % (70-80); VENOUS PCO2 49.9 mmHg (38-52); VENOUS PH 7.397 (7.310-7.410)
[2022-10-19 19:36] LABS: EOS % 0.1 % (0-4.5); RBC 4.98 M/mm3 (4.00-5.60)
[2022-10-19 20:20] LABS: BASO % 0.9 % (0-2.0); HEMATOCRIT 42.7 % (35.4-49); LYMPH % 9.3 % (8-40); MCH 28.1 pg (25.7-33.7); MCHC 32.8 g/dl (32.0-35.9); MEAN CELL VOLUME 85.7 fl (80-96); MEAN PLT VOLUME 9.8 fl (7.5-11.1); MONO % 8.6 % (3.8-10.2); NEUT % 81.1 % (42.8-82.8); PLATELET COUNT 142 10^3/uL (134-434); RDW 15.1 % (11.9-15.9)
[2022-10-19] MEDS ORDERED: DEXAMETHASONE SOD PHOSPHATE 10 MG/1 ML VIAL IVPUSH ONE (20:25)
[2022-10-19] MEDS ORDERED: DEXAMETHASONE SOD PHOSPHATE 10 MG/1 ML VIAL ONE (20:31)
[2022-10-19 20:57] LABS: ALBUMIN 3.4 g/dl (3.4-5.0); CALCIUM 8.9 mg/dL (8.5-10.1)
[2022-10-19 20:58] LABS: BLOOD UREA NITROGEN 13.3 mg/dL (7-18); MAGNESIUM 1.8 mg/dL (1.8-2.4)
[2022-10-19 21:01] LABS: CREATININE 1.1 mg/dL (0.55-1.3); PHOSPHOROUS 2.8 mg/dL (2.5-4.9)
[2022-10-19 21:02] LABS: TOT PROT 6.3 g/dl (6.4-8.2)
[2022-10-19 21:19] LABS: BILIRUBIN,TOTAL 0.6 mg/dL (0.2-1)
[2022-10-19 21:23] LABS: N-TERMINAL BNP 496.9 pg/ml (5-450)
[2022-10-19] MEDS ORDERED: DOCUSATE SODIUM 100 MG CAPSULE (FP) PO PRN (22:08)
[2022-10-19] MEDS ORDERED: BENZOCAINE/MENTH/CETYLPYRD CL 1 EACH LOZENGE MM PRN (22:08)
[2022-10-19] MEDS ORDERED: ALBUTEROL SO4 HFA INHALER IH PRN (22:08)
[2022-10-19] MEDS ORDERED: TRIMETHOBENZAMIDE HCL 200MG/2ML INJ IM PRN (22:08)
[2022-10-19] MEDS ORDERED: REMDESIVIR 200 MG in SODIUM CHLORIDE 250 ML IVPB ONE (22:14)
[2022-10-19] MEDS ORDERED: guaiFENesin/D-M SUGAR-FREE/ACLHOL-FREE 118 ML BOTTLE PO PRN (22:15)
[2022-10-19] MEDS ORDERED: MAG HYDROX/AL HYDROX/SIMETH 30 ML UNIT-DOSE CUP PO PRN (23:21)
[2022-10-19 23:31] LABS: INR 1.21 (0.83-1.09)
[2022-10-19 23:34] LABS: ACTIVATED PTT 27.1 SECONDS (25.2-36.5)
[2022-10-20 08:35] LABS: HEMATOCRIT 40.8 % (35.4-49); HEMOGLOBIN 13.6 GM/dL (11.7-16.9); MCH 28.2 pg (25.7-33.7); MCHC 33.3 g/dl (32.0-35.9); MEAN CELL VOLUME 84.8 fl (80-96); MEAN PLT VOLUME 9.8 fl (7.5-11.1); PLATELET COUNT 135 10^3/uL (134-434); RBC 4.82 M/mm3 (4.00-5.60); RDW 14.9 % (11.9-15.9); WHITE BLOOD COUNT 6.1 K/mm3 (4.0-10.0)
[2022-10-20 09:05] LABS: CALCIUM 8.6 mg/dL (8.5-10.1)
[2022-10-20 09:07] LABS: BLOOD UREA NITROGEN 15.9 mg/dL (7-18)
[2022-10-20 09:09] LABS: CREATININE 0.9 mg/dL (0.55-1.3)
[2022-10-20] MEDS ORDERED: ENOXAPARIN NA (PORCINE) 40 MG/0.4 ML DISP.SYRIN SQ SCH (10:00)
[2022-10-20] MEDS: HEPARIN NA (PORCINE) 5,000 UNITS/ML 1ML VIAL SQ SCH ×2 (10:16→21:04)
[2022-10-20] MEDS: CLOPIDOGREL BISULFATE 75 MG TABLET (FP) PO SCH (10:16)
[2022-10-20] MEDS: PANTOPRAZOLE 40 MG TABLET PO SCH (10:16)
[2022-10-20] MEDS: metoPROLOL SUCCINATE 25 MG TAB.SR.24H (FP) PO SCH (10:16)
[2022-10-20] MEDS: DEXAMETHASONE SOD PHOSPHATE 10 MG/1 ML VIAL IVPUSH SCH (10:16)
[2022-10-20] MEDS: REMDESIVIR 100 MG in SODIUM CHLORIDE 250 ML IVPB SCH (12:45)
[2022-10-20] MEDS: ATORVASTATIN CA 40 MG TABLET (FP) PO SCH (21:04)
[2022-10-21 03:24] VITALS: RESP 20
[2022-10-21] MEDS ORDERED: VANCOMYCIN 1 GM in D5W (PRE-DOCKED) 1,000 MG/250 ML IVPB ONE (04:14)
[2022-10-21] MEDS ORDERED: VANCOMYCIN/WATER FOR INJ (PEG) 1,000 MG/200 ML BAG IVPB ONE (04:30)
[2022-10-21] MEDS: REMDESIVIR 100 MG in SODIUM CHLORIDE 250 ML IVPB SCH (09:54)
[2022-10-21] MEDS: PANTOPRAZOLE 40 MG TABLET PO SCH (09:55)
[2022-10-21] MEDS: CLOPIDOGREL BISULFATE 75 MG TABLET (FP) PO SCH (09:55)
[2022-10-21] MEDS: DEXAMETHASONE SOD PHOSPHATE 10 MG/1 ML VIAL IVPUSH SCH (09:55)
[2022-10-21] MEDS: HEPARIN NA (PORCINE) 5,000 UNITS/ML 1ML VIAL SQ SCH ×2 (09:55→21:32)
[2022-10-21] MEDS: metoPROLOL SUCCINATE 25 MG TAB.SR.24H (FP) PO SCH (09:55)
[2022-10-21] MEDS: VANCOMYCIN/WATER FOR INJ (PEG) 1,000 MG/200 ML BAG IVPB SCH (17:15)
[2022-10-21] MEDS: ATORVASTATIN CA 40 MG TABLET (FP) PO SCH (21:32)
[2022-10-21] MEDS: INSULIN SLIDING SCALE (NOVOLOG) 1 VIAL SQ SCH (21:32)
[2022-10-22] MEDS: VANCOMYCIN/WATER FOR INJ (PEG) 1,000 MG/200 ML BAG IVPB SCH (06:08)
[2022-10-22] MEDS: INSULIN SLIDING SCALE (NOVOLOG) 1 VIAL SQ SCH ×4 (06:32→21:23)
[2022-10-22] MEDS: DEXAMETHASONE SOD PHOSPHATE 10 MG/1 ML VIAL IVPUSH SCH (11:16)
[2022-10-22] MEDS: CLOPIDOGREL BISULFATE 75 MG TABLET (FP) PO SCH (11:16)
[2022-10-22] MEDS: HEPARIN NA (PORCINE) 5,000 UNITS/ML 1ML VIAL SQ SCH ×2 (11:16→21:19)
[2022-10-22] MEDS: metoPROLOL SUCCINATE 25 MG TAB.SR.24H (FP) PO SCH (11:16)
[2022-10-22] MEDS: PANTOPRAZOLE 40 MG TABLET PO SCH (11:16)
[2022-10-22] MEDS: REMDESIVIR 100 MG in SODIUM CHLORIDE 250 ML IVPB SCH (11:16)
[2022-10-22] MEDS ORDERED: INSULIN (NOVOLOG) ASPART 100 UNITS/ML 10ML VIAL ONE (11:20)
[2022-10-22] MEDS: ATORVASTATIN CA 40 MG TABLET (FP) PO SCH (21:19)
[2022-10-23] MEDS: INSULIN SLIDING SCALE (NOVOLOG) 1 VIAL SQ SCH ×2 (06:00→11:32)
[2022-10-23] MEDS: metoPROLOL SUCCINATE 25 MG TAB.SR.24H (FP) PO SCH (09:32)
[2022-10-23] MEDS: CLOPIDOGREL BISULFATE 75 MG TABLET (FP) PO SCH (09:32)
[2022-10-23] MEDS: REMDESIVIR 100 MG in SODIUM CHLORIDE 250 ML IVPB SCH (09:32)
[2022-10-23] MEDS: HEPARIN NA (PORCINE) 5,000 UNITS/ML 1ML VIAL SQ SCH (09:32)
[2022-10-23] MEDS: DEXAMETHASONE SOD PHOSPHATE 10 MG/1 ML VIAL IVPUSH SCH (09:32)
[2022-10-23] MEDS: PANTOPRAZOLE 40 MG TABLET PO SCH (09:32)
[2022-10-23 09:33] LABS: BASO % 0.1 % (0-2.0); HEMATOCRIT 39.5 % (35.4-49); HEMOGLOBIN 13.2 GM/dL (11.7-16.9); LYMPH % 16.6 % (8-40); MCHC 33.3 g/dl (32.0-35.9); MEAN CELL VOLUME 84.2 fl (80-96); MEAN PLT VOLUME 9.7 fl (7.5-11.1); MONO % 7.5 % (3.8-10.2); NEUT % 75.8 % (42.8-82.8); PLATELET COUNT 163 10^3/uL (134-434); WHITE BLOOD COUNT 6.4 K/mm3 (4.0-10.0)
[2022-10-23 10:07] LABS: ALBUMIN 2.9 g/dl (3.4-5.0)
[2022-10-23 10:08] LABS: BILIRUBIN,TOTAL 0.5 mg/dL (0.2-1)
[2022-10-23 10:09] LABS: CALCIUM 8.4 mg/dL (8.5-10.1); CREATININE 0.9 mg/dL (0.55-1.3)
[2022-10-23 10:10] LABS: TOT PROT 5.7 g/dl (6.4-8.2)
[2022-10-23 14:26] VITALS: BP 107/65; PULSE 57; TEMP 97.2
== END 2022-10-23 15:57 | disposition home or self-care (01) | DRG 179 ==
LOC: JER 17:07 → JERBED 21:49 → J6S 10-20 08:24
PROVIDERS: ADMIT Family Medicine; ATTEND Internal Medicine
PROC: XW033E5 Introduction of Remdesivir Anti-infective into Peripheral Vein, Percutaneous Approach, New Technology Group 5 (ICD-10-PCS; principal; 2022-10-20)
PROC: 3E0333Z Introduction of Anti-inflammatory into Peripheral Vein, Percutaneous Approach (ICD-10-PCS; 2022-10-20)
DX: U07.1 COVID-19 (principal); I10 Essential (primary) hypertension; E78.5 Hyperlipidemia, unspecified; F03.90 Unspecified dementia, unspecified severity, without behavioral disturbance, psychotic disturbance, mood disturbance, and anxiety; E11.9 Type 2 diabetes mellitus without complications; R09.02 Hypoxemia; K21.9 Gastro-esophageal reflux disease without esophagitis; I25.10 Atherosclerotic heart disease of native coronary artery without angina pectoris; Z88.0 Allergy status to penicillin
CPT/HCPCS: 0241U-QW; 36415; 71045-TC-FY; 80048; 80053; 82728; 82803; 82962; 83615; 83735; 83880; 84100; 84484; 85025; 85027; 85610; 85730; 86140; 87040; 93005; 93010; 99285-25; C9399; C9803-CS; J1100; J1644; U0003; U0005

== ENCOUNTER 2022-11-01 13:04 | Emergency (ER) | payer OTHER, BC ==
[2022-11-01 13:20] VITALS: BP 126/77; RESP 18; TEMP 98; BMI 25.0
[2022-11-01 13:52] VITALS: PULSE 77
[2022-11-01 14:31] LABS: BASO % 0.4 % (0-2.0); EOS % 0.5 % (0-4.5); HEMATOCRIT 43.4 % (35.4-49); HEMOGLOBIN 14.1 GM/dL (11.7-16.9); LYMPH % 10.6 % (8-40); MCH 27.8 pg (25.7-33.7); MCHC 32.5 g/dl (32.0-35.9); MEAN CELL VOLUME 85.4 fl (80-96); MEAN PLT VOLUME 9.1 fl (7.5-11.1); MONO % 6.3 % (3.8-10.2); NEUT % 82.2 % (42.8-82.8); PLATELET COUNT 175 10^3/uL (134-434); RBC 5.08 M/mm3 (4.00-5.60); RDW 15.3 % (11.9-15.9)
[2022-11-01 14:50] LABS: ALBUMIN 2.8 g/dl (3.4-5.0); BLOOD UREA NITROGEN 18.7 mg/dL (7-18); CALCIUM 8.8 mg/dL (8.5-10.1)
[2022-11-01 14:55] LABS: TOT PROT 5.8 g/dl (6.4-8.2)
== END 2022-11-01 16:28 | disposition home or self-care (01) ==
LOC: JER 13:04
DX: U07.1 COVID-19 (principal); J06.9 Acute upper respiratory infection, unspecified; J01.90 Acute sinusitis, unspecified
CPT/HCPCS: 0241U-QW; 36415; 71045-TC-FY; 80053; 85025; 93005; 93010; 99285-25